=== PATIENT | female | born 1985 | race Caucasian/White ===

== ENCOUNTER 2017-03-30 15:50 | Emergency (ER) | payer MEDICARE ==
[2017-03-30 15:56] VITALS: BP 118/86
--- NOTE | 2017-03-30 16:26 | ER Document Report ---
HPI - HPI Pain Level: 4 Notes: Patient is a 32-year-old female IV drug abuser who presents the ED for a wound recheck of the cellulitis to her left anterior distal forearm after evaluation 4 days ago. At that time patient did not have an abscess for incision and drainage and was sent home on Bactrim and Keflex. Patient states that the redness is overall improved, but more of an abscess formation has developed to the anterior distal wrist that has become more painful than it was before. Patient has not noticed any drainage or red streaks. She still eating and drinking without any difficulties. No other concerns or complaints at this time. She continues to take her antibiotics as directed. Denies any headache, fever, URI, sore throat, chest pain, palpitations, syncope, cough, shortness of breath, wheeze, dyspnea, abdominal pain, nausea/vomiting/diarrhea, dysuria, hematuria, numbness/tingling, muscle paralysis/weakness, or rash. - ROS Notes: REVIEW OF SYSTEMS: CONSTITUTIONAL : Denies fever, chills, or sweats. Denies recent illness. EENT: Denies eye, ear, throat, or mouth pain or symptoms. Denies nasal or sinus congestion or discharge. Denies throat, tongue, or mouth swelling or difficulty swallowing. CARDIOVASCULAR: Denies chest pain. Denies palpitations or racing or irregular heart beat. Denies ankle edema. RESPIRATORY: Denies cough, cold, or chest congestion. Denies shortness of breath, difficulty breathing, or wheezing. GASTROINTESTINAL: Denies abdominal pain or distention. Denies nausea, vomiting , or diarrhea. Denies blood in vomitus, stools, or per rectum. Denies black, tarry stools. Denies constipation. GENITOURINARY: Denies difficulty urinating, painful urination, burning, frequency, blood in urine, or discharge. MUSCULOSKELETAL: Denies back or neck pain or stiffness. Denies joint pain or swelling. SKIN: see hpi NEUROLOGICAL: Denies confusion or altered mental status. Denies passing out or loss of consciousness. Denies dizziness or lightheadedness. Denies headache. Denies weakness or paralysis or loss of use of either side. Denies problems with gait or speech. Denies sensory loss, numbness, or tingling. ALL OTHER SYSTEMS REVIEWED AND NEGATIVE. Dictation was performed using [employer] recognition software - CARDIOVASCULAR Cardiovascular: DENIES: Chest pain - DERM Skin Color: Normal Past Medical History - Social History Smoking Status: Current Every Day Smoker Chew tobacco use (# tins/day): No Frequency of alcohol use: None Drug Abuse: None Family History: Reviewed & Not Pertinent Patient has suicidal ideation: No Patient has homicidal ideation: No Pulmonary Medical History: Reports: Hx Asthma Renal/ Medical History: Reports: Hx Kidney Stones. Denies: Hx Peritoneal Dialysis Past Surgical History: Reports: Hx Kidney (Renal Surgery) - kidney stents/ lithotripsy - Immunizations Hx Diphtheria, Pertussis, Tetanus Vaccination: Yes Vertical Provider Document - CONSTITUTIONAL Agree With Documented VS: Yes Notes: PHYSICAL EXAMINATION: GENERAL: Well-appearing, well-nourished and in no acute distress. NECK: Normal range of motion, supple without lymphadenopathy LUNGS: Breath sounds clear to auscultation bilaterally and equal. No wheezes rales or rhonchi. HEART: Regular rate and rhythm without murmurs, rubs, gallops. Musculoskeletal: Left UE: FROM to passive/active. Strength 5+/5. Extremities: No cyanosis, clubbing, or edema b/l. Peripheral pulses 2+. Capillary refill less than 3 seconds. NEUROLOGICAL: Cranial nerves grossly intact. Normal speech, normal gait. Normal sensory, motor exams PSYCH: Normal mood, normal affect. SKIN: There is a 2cm diam. abscess to the anterior left distal forearm/wrist. + fluctuant material. + mild induration. Overall the erythema that was marked has greatly improved. - INFECTION CONTROL TRAVEL OUTSIDE OF THE [place] IN LAST 30 DAYS: No - RESPIRATORY O2 Sat by Pulse Oximetry: 98 Course - Re-evaluation Re-evalutation: 03/30/17 17:08 Patient is an afebrile, well-hydrated, 32-year-old female who presents the ED with an abscess to the left wrist are stable. PE is otherwise unremarkable. Patient is already currently taking Keflex and Bactrim for cellulitis in that area, but has recently developed into an abscess distally. Incision and drainage was performed successfully without any complications. Packing was placed and a wound culture was obtained. Wound instructions reviewed after wound dressing was placed. Conservative measures for symptoms otherwise. You will need a wound recheck in 2-3 days. Return to the ED with any worsening/ concerning symptoms otherwise as reviewed in discharge. Patient is in agreement. - Vital Signs Vital signs: Temp Pulse Resp BP Pulse Ox 98.8 F 92 12 118/86 H 98 03/30/17 15:53 03/30/17 15:53 03/30/17 15:53 03/30/17 15:53 03/30/17 15:53 Procedures - Incision and Drainage Left Wrist Time completed: 17:00 Type: Simple Anesthetic type: 1% Lidocaine mL's of anesthetic: 5 Blade size: 11 I&D procedure: Iodoform packing placed, Sterile dressing applied, Other - chlorhexadine Incision Method: Incision made by scalpel Amount/type of drainage: moderate purulent Discharge - Discharge Clinical Impression: Abscess Condition: Stable Disposition: HOME, SELF-CARE Instructions: Abscess ([facility]), Post Incision and Drainage Additional Instructions: Do not shower or bathe for 24 hours. After 24 hours she may shower but no submersion of the wound under water. Keep the original dressing on the wound for 24 hours unless the drainage soaks through. Change the dressing daily thereafter and use a small amount of triple antibiotic ointment over the open wound. Return to the ED and/or your PCM in 2-3 days for recheck and continue direction for wound packing. Monitor for any signs of worsening pain or redness , streaks, and/or fever. Return to the ED if noticing any of the above symptoms or as needed. Take medications as directed. Forms: Elevated Blood Pressure Referrals: [facility] [Provider Group] - Follow up as needed [facility] [Provider Group] - Follow up as needed
[2017-03-30] MEDS ORDERED: OXYCODONE HCL IR 5 MG TABLET PO ONE (17:08)
== END 2017-03-30 17:19 | disposition home or self-care (01) ==
LOC: ER 15:50
DX: L02.414 Cutaneous abscess of left upper limb (principal); F17.200 Nicotine dependence, unspecified, uncomplicated; J45.909 Unspecified asthma, uncomplicated; L03.114 Cellulitis of left upper limb
CPT/HCPCS: 99283; 87070; 87205; 87075; 87077; 87186; 10060; A9270

== ENCOUNTER 2017-04-02 20:50 | Emergency (ER) | payer MEDICARE ==
[2017-04-02] MEDS ORDERED: HYDROCODONE/ACETAMINOPHEN 5-325 MG 6 TAB/DSPK PO PRN (23:24)
--- NOTE | 2017-04-02 23:26 | ER Document Report ---
ED Wound - General Chief Complaint: Wound Recheck Stated Complaint: WOUND CHECK Time Seen by Provider: 04/02/17 21:56 Notes: Patient is a 32-year-old female presents emergency department for a wound check. Patient was seen here for a left wrist abscess on the flexor surface 3 days ago for an I&D after previously being evaluated diagnosis cellulitis on 03/26. Denies fevers, chills, drainage worsening redness. States it is sore to move but denies deep wrist pain, limited ROM TRAVEL OUTSIDE OF THE [place] IN LAST 30 DAYS: No - Related Data Allergies/Adverse Reactions: ketorolac [From Toradol] Allergy (Verified 03/30/17 15:53) sumatriptan [From Imitrex] Allergy (Verified 03/30/17 15:53) Past Medical History - Social History Smoking Status: Unknown if Ever Smoked Chew tobacco use (# tins/day): No Frequency of alcohol use: None Drug Abuse: None Family History: Reviewed & Not Pertinent Patient has suicidal ideation: No Patient has homicidal ideation: No Pulmonary Medical History: Reports: Hx Asthma Renal/ Medical History: Reports: Hx Kidney Stones. Denies: Hx Peritoneal Dialysis Past Surgical History: Reports: Hx Kidney (Renal Surgery) - kidney stents/ lithotripsy - Immunizations Hx Diphtheria, Pertussis, Tetanus Vaccination: Yes Review of Systems - Review of Systems Constitutional: No symptoms reported Musculoskeletal: See HPI Skin: See HPI -: Yes All other systems reviewed and negative Physical Exam - Vital signs Vitals: Temp Pulse Resp BP Pulse Ox 98.4 F 95 16 125/81 98 04/02/17 21:03 04/02/17 21:03 04/02/17 21:03 04/02/17 21:03 04/02/17 21:03 - General General appearance: Appears well, Alert In distress: None - Cardiovascular Pulses: Normal: Radial Normal capillary refill: Yes - Extremities General upper extremity: Normal inspection, Nontender, Normal color, Normal ROM , Normal strength, Normal temperature - Skin Skin Temperature: Warm Skin Moisture: Dry Skin Color: Normal Skin Turgor: Elastic Skin irregularity: Abscess - previous I&D incision over left flexor surface of the wrist approx. 1.5 cm in length with minimal erythema, no induration or drainage Course - Re-evaluation Re-evalutation: 11/14/17 23:24 Patient is a 32-year-old female is hemodynamically stable, no acute distress afebrile. Wound is healing well with improvement in the redness and induration with no active drainage. Patient educated to continue dressing changes as she has been in to follow-up again in 3 to days for repeat wound check if she can get established with primary care. Patient agrees with plan and stable for discharge home. - Vital Signs Vital signs: Temp Pulse Resp BP Pulse Ox 97.8 F 83 18 116/83 98 04/02/17 23:53 04/02/17 23:53 04/02/17 23:53 04/02/17 23:53 04/02/17 23:53 Discharge - Discharge Clinical Impression: Abscess Condition: Good Disposition: HOME, SELF-CARE Instructions: MRSA Cellulitis ([facility]), Post Incision and Drainage Additional Instructions: Please see primary care or return to ED for wound check in 3 days Prescriptions: Tramadol HCl [Ultram] 50 mg PO BID #10 tablet Referrals: DARRYL SANTIZO MD [ACTIVE STAFF] - Follow up in 3-5 days
[2017-04-02] MEDS ORDERED: HYDROCODONE/ACETAMINOPHEN 5-325 MG TABLET PO ONE (23:37)
[2017-04-02 23:53] VITALS: BP 116/83
== END 2017-04-02 23:53 | disposition home or self-care (01) ==
LOC: ER 20:50
DX: L02.414 Cutaneous abscess of left upper limb (principal)
CPT/HCPCS: 99282; A9270

== ENCOUNTER 2017-06-24 23:05 | Inpatient (IN) | payer MEDICARE ==
[2017-06-24 23:47] LABS: ABSOLUTE LYMPHOCYTES (AUTO) 1.7 10^3/uL (0.5-4.7); ABSOLUTE MONOCYTES (AUTO) 0.5 10^3/uL (0.1-1.4); ABSOLUTE NEUT (AUTO) 4.8 10^3/uL (1.7-8.2); BASOPHILS % (AUTO) 0.5 % (0-2); EOSINOPHILS % (AUTO) 0.2 % (0-6); HEMATOCRIT 32.1 % (36.0-47.0); HEMOGLOBIN 11.2 g/dL (12.0-15.5); LYMPHOCYTES % (AUTO) 24.6 % (13-45); MEAN CORPUSCULAR HEMOGLOBIN 32.8 pg (27.0-33.4); MEAN CORPUSCULAR VOLUME 94 fl (80-97); MONOCYTES % (AUTO) 6.5 % (3-13); PLATELET COUNT 298 10^3/uL (150-450); RED BLOOD COUNT 3.43 10^6/uL (3.72-5.28); RED CELL DISTRIBUTION WIDTH 15.6 % (11.5-14.0); SEGMENTED NEUTROPHILS % (AUTO) 68.2 % (42-78); TOTAL CELLS COUNTED % (AUTO) 100 %; WHITE BLOOD COUNT 7.1 10^3/uL (4.0-10.5)
[2017-06-25] MEDS ORDERED: NALOXONE HCL INJ 2 MG/2 ML DISP.SYRIN IV ONE (00:03)
--- NOTE | 2017-06-25 00:04 | ER Document Report ---
ED General - General Chief Complaint: Possible Overdose Stated Complaint: ALTERED MENTAL STATUS Time Seen by Provider: 06/24/17 23:30 Mode of Arrival: Medic Information source: Relative, Legal Guardian Cannot obtain history due to: Uncooperative, Altered mental status Notes: 32-year-old female who had a previous overdose on gabapentin 2 weeks ago requiring intubation presents unresponsive by family member. They note that the patient was given gabapentin again and had plenty in the bottle yesterday, she was acting appropriately wanted to be left alone they left her alone for 2 hours and when they went to check on her patient was unresponsive TRAVEL OUTSIDE OF THE [place] IN LAST 30 DAYS: No - HPI Onset: Just prior to arrival Onset/Duration: Sudden Quality of pain: No pain Severity: Severe Pain Level: Denies Associated symptoms: Other Exacerbated by: Denies Relieved by: Denies Similar symptoms previously: Yes Recently seen / treated by doctor: Yes - Related Data Allergies/Adverse Reactions: ketorolac [From Toradol] Allergy (Verified 03/30/17 15:53) sumatriptan [From Imitrex] Allergy (Verified 03/30/17 15:53) Past Medical History - Social History Smoking Status: Never Smoker Cigarette use (# per day): No Chew tobacco use (# tins/day): No Smoking Education Provided: No Family History: Reviewed & Not Pertinent Pulmonary Medical History: Reports: Hx Asthma Renal/ Medical History: Reports: Hx Kidney Stones. Denies: Hx Peritoneal Dialysis Past Surgical History: Reports: Hx Kidney (Renal Surgery) - kidney stents/ lithotripsy - Immunizations Hx Diphtheria, Pertussis, Tetanus Vaccination: Yes Review of Systems - Review of Systems Notes: PHYSICAL EXAMINATION: GENERAL: Patient is obtunded HEAD: Atraumatic, normocephalic. EYES: Pupils equal round and reactive to light, extraocular movements intact, conjunctiva are normal. ENT: Trumpet placed nares patent, oropharynx clear without exudates. Moist mucous membranes. NECK: Normal range of motion, supple without lymphadenopathy LUNGS: Breath sounds clear to auscultation bilaterally and equal. No wheezes rales or rhonchi. HEART: Regular rate and rhythm without murmurs ABDOMEN: Soft, nontender, nondistended abdomen. No guarding, no rebound. No masses appreciated. Female : deferred Musculoskeletal: Intermittently moves extremities NEUROLOGICAL: Unresponsive SKIN: Warm, Dry, normal turgor, no rashes or lesions noted. -: Yes ROS unobtainable due to patient's medical condition Physical Exam - Vital signs Vitals: Resp BP Pulse Ox 11 L 112/83 96 06/25/17 00:25 06/25/17 00:25 06/25/17 00:25 Course - Re-evaluation Re-evalutation: 06/25/17 00:03 Patient presents obtunded with normal vital signs, however due to my concerns of not protecting her airway we will try Narcan initially if this does not work the patient will be intubated for airway protection 06/25/17 00:28 No response ot narcan or painful stimuli, will plan for intubation 06/25/17 02:46 Patient intubated aspirated food noted, pt admitted to icu - Vital Signs Vital signs: Temp Pulse Resp BP Pulse Ox 10 L 117/75 99 06/25/17 02:00 06/25/17 02:00 06/25/17 02:01 - Laboratory Result Diagrams: 06/24/17 23:35 06/24/17 23:35 Laboratory results interpreted by me: 06/24/17 06/24/17 06/25/17 23:35 23:35 00:00 RBC 3.43 L Hgb 11.2 L Hct 32.1 L RDW 15.6 H Glucose 159 H Urine Ketones TRACE H Salicylates < 1.0 L Acetaminophen < 10 L Procedures - Intubation Orotracheal Time of Intubation: 01:00 Airway evaluation: Normal anatomy, Copious secretions, Loose teeth Mallampati Classification: Class 2 Medications: Etomidate, Succinylcholine Intubation method: Orotracheal Blade type: Arielle Blade size: 4 ETT size: 7.5 ETT secured at: Teeth ETT secured at (cm): 22 Breath Sounds after Intubation: Equal End tidal CO2 confirmed: Yes Intubation Complications: Apparent aspiration - pt had lots of food in airway after intubation from previous aspiraiton Discharge - Discharge Clinical Impression: Self-harming behavior Drug overdose Qualifiers: Encounter type: initial encounter Injury intent: intentional self-harm Qualified Code(s): T50.902A - Poisoning by unspecified drugs, medicaments and biological substances, intentional self-harm, initial encounter Aspiration into airway Qualifiers: Encounter type: initial encounter Qualified Code(s): T17.908A - Unspecified foreign body in respiratory tract, part unspecified causing other injury, initial encounter Condition: Fair Disposition: ADMITTED INPATIENT Admitting Provider: Hospitalist Unit Admitted: ICU
[2017-06-25 00:05] LABS: ALANINE AMINOTRANSFERASE 36 U/L (9-52); ALBUMIN 3.8 g/dL (3.5-5.0); ALKALINE PHOSPHATASE 65 U/L (38-126); ANION GAP 10 (5-19); ASPARTATE AMINO TRANSFERASE 28 U/L (14-36); BILIRUBIN,DIRECT 0.1 mg/dL (0.0-0.4); BILIRUBIN,TOTAL 0.2 mg/dL (0.2-1.3); BLOOD UREA NITROGEN 7 mg/dL (7-20); CALCIUM 9.4 mg/dL (8.4-10.2); CARBON DIOXIDE 24 mmol/L (22-30); CHLORIDE 106 mmol/L (98-107); GLUCOSE 159 mg/dL (75-110); POTASSIUM 3.7 mmol/L (3.6-5.0); SODIUM 140.4 mmol/L (137-145)
[2017-06-25 00:08] LABS: ACETAMINOPHEN < 10 ug/mL (10-30); ALCOHOL < 10 mg/dL (NONE DETECTED); SALICYLATE < 1.0 mg/dL (2.0-20.0)
[2017-06-25 00:12] LABS: APPEARANCE,URINE CLEAR; BILIRUBIN,URINE NEGATIVE (NEGATIVE); COLOR,URINE YELLOW; GLUCOSE, URINE NEGATIVE (NEGATIVE); KETONES,URINE TRACE mg/dL (NEGATIVE); LEUKOCYTE ESTERASE,URINE NEGATIVE (NEGATIVE); NITRITE,URINE NEGATIVE (NEGATIVE); PROTEIN,URINE NEGATIVE (NEGATIVE); URINE SPECIFIC GRAVITY 1.008; UROBILINOGEN,URINE NEGATIVE mg/dL (<2.0)
[2017-06-25 00:26] LABS: URINE AMPHETAMINES SCREEN NEGATIVE; URINE BARBITURATES SCREEN NEGATIVE; URINE BENZODIAZEPINES SCREEN NEGATIVE; URINE COCAINE SCREEN UNCONFIRMED POSITIVE; URINE MARIJUANA (THC) SCREEN UNCONFIRMED POSITIVE; URINE METHADONE SCREEN NEGATIVE; URINE PHENCYCLIDINE SCREEN NEGATIVE
[2017-06-25] MEDS ORDERED: ETOMIDATE INJ/PF 20 MG/10 ML SDV IV ONE ×2 (00:29→02:25)
[2017-06-25] MEDS ORDERED: SUCCINYLCHOLINE CHLORIDE INJ 200 MG/10 ML VIAL IV ONE (00:29)
[2017-06-25] MEDS ORDERED: EPTIFIBATIDE 0 MG/0 ML INFUS..BTL IV ONE (00:43)
[2017-06-25] MEDS ORDERED: PROPOFOL 100 ML IV ONE (01:04)
[2017-06-25] MEDS ORDERED: PROPOFOL 100 ML IV PRN (01:05)
[2017-06-25] MEDS ORDERED: AMPICILLIN SOD/SULBACTAM 3 GM VIAL IV ONE (01:10)
[2017-06-25] MEDS ORDERED: MAG HYDROX/AL HYDROX/SIMETH SUSP 30 ML UDCUP PO PRN (01:15)
[2017-06-25] MEDS ORDERED: FENTANYL CITRATE INJ/PF 100 MCG/2 ML AMPUL IV PRN (01:15)
[2017-06-25] MEDS ORDERED: IPRATROPIUM/ALBUTEROL 0.5-2.5 MG/3 ML AMPUL NEB PRN (01:15)
[2017-06-25] MEDS ORDERED: ONDANSETRON HCL INJ/PF 4 MG/2 ML SDV IV PRN (01:15)
[2017-06-25] MEDS ORDERED: MIDAZOLAM 2 MG/2 ML INJ IV ONE (01:41)
[2017-06-25] MEDS: NORMAL SALINE 1000 ML 1,000 ML IV PRN ×3 (01:49→13:24)
--- NOTE | 2017-06-25 01:54 | RADIOLOGY REPORT (SQ) ---
EXAM DESCRIPTION: CHEST SINGLE VIEW CLINICAL HISTORY: post intubation COMPARISON: None. FINDINGS: Single frontal view of the chest. Endotracheal tube 2 cm above the patience. NG tube with tip below the diaphragm. Leads overlie the chest. Heart is not enlarged. No consolidation, pneumothorax, or pleural effusion. No displaced rib fractures identified. Upper abdominal soft tissues are unremarkable. IMPRESSION: 1. No acute pulmonary process identified. Endotracheal tube in appropriate position.
[2017-06-25] MEDS: IPRATROPIUM/ALBUTEROL 0.5-2.5 MG/3 ML AMPUL NEB SCH ×4 (02:42→21:11)
[2017-06-25 03:12] LABS: ARTERIAL BLOOD BASE EXCESS -1.9 mmol/L; ARTERIAL BLOOD H2CO3 1.07 mmol/L (1.05-1.35); ARTERIAL BLOOD HCO3 22.2 mmol/L (20-26); ARTERIAL BLOOD O2 SATURATION 99.5 % (94-98); ARTERIAL BLOOD PCO2 35.6 mmHg (35-45); ARTERIAL BLOOD PH 7.41 (7.35-7.45); ARTERIAL BLOOD PO2 232.2 mmHg (80-100); ARTERIAL BLOOD TOTAL CO2 23.3 mmol/L (21-25)
[2017-06-25 03:13] LABS: ARTERIAL BLOOD FIO2 60%
[2017-06-25] MEDS: PROPOFOL 100 ML IV PRN ×7 (03:38→19:25)
[2017-06-25] MEDS ORDERED: FENTANYL CITRATE INJ/PF 100 MCG/2 ML AMPUL ONE (05:08)
[2017-06-25] MEDS: FENTANYL CITRATE INJ/PF 100 MCG/2 ML AMPUL IV PRN ×2 (05:09→22:10)
[2017-06-25 05:39] LABS: ABSOLUTE BASOPHILS # (AUTO) 0.1 10^3/uL (0.0-0.2); ABSOLUTE EOSINOPHILS # (AUTO) 0.1 10^3/uL (0.0-0.6); ABSOLUTE LYMPHOCYTES (AUTO) 1.9 10^3/uL (0.5-4.7); ABSOLUTE MONOCYTES (AUTO) 0.7 10^3/uL (0.1-1.4); ABSOLUTE NEUT (AUTO) 5.5 10^3/uL (1.7-8.2); BASOPHILS % (AUTO) 0.9 % (0-2); EOSINOPHILS % (AUTO) 0.7 % (0-6); HEMATOCRIT 32.1 % (36.0-47.0); HEMOGLOBIN 11.2 g/dL (12.0-15.5); LYMPHOCYTES % (AUTO) 23.5 % (13-45); MEAN CORPUSCULAR HEMOGLOBIN 32.8 pg (27.0-33.4); MEAN CORPUSCULAR VOLUME 94 fl (80-97); MONOCYTES % (AUTO) 8.3 % (3-13); PLATELET COUNT 293 10^3/uL (150-450); RED BLOOD COUNT 3.43 10^6/uL (3.72-5.28); RED CELL DISTRIBUTION WIDTH 15.3 % (11.5-14.0); SEGMENTED NEUTROPHILS % (AUTO) 66.6 % (42-78); TOTAL CELLS COUNTED % (AUTO) 100 %; WHITE BLOOD COUNT 8.3 10^3/uL (4.0-10.5)
[2017-06-25] MEDS ORDERED: LORAZEPAM INJ 2 MG/1 ML VIAL IV ONE (05:43)
[2017-06-25] MEDS: HEPARIN SOD (PORCINE) 5,000 UNIT/ML 1 ML SYRINGE SUBCUT SCH ×3 (05:47→22:09)
[2017-06-25 06:10] LABS: ALANINE AMINOTRANSFERASE 38 U/L (9-52); ALBUMIN 3.3 g/dL (3.5-5.0); ALKALINE PHOSPHATASE 61 U/L (38-126); ANION GAP 6 (5-19); ASPARTATE AMINO TRANSFERASE 30 U/L (14-36); BILIRUBIN,DIRECT 0.4 mg/dL (0.0-0.4); BILIRUBIN,TOTAL 0.4 mg/dL (0.2-1.3); BLOOD UREA NITROGEN 5 mg/dL (7-20); CARBON DIOXIDE 25 mmol/L (22-30); CHLORIDE 114 mmol/L (98-107); GLUCOSE 106 mg/dL (75-110); POTASSIUM 3.4 mmol/L (3.6-5.0); TOTAL PROTEIN 6.2 g/dL (6.3-8.2)
--- NOTE | 2017-06-25 06:26 | PDOC H&P ---
History of Present Illness Admission Date/PCP: 06/25/17 01:19 Patient complains of: Altered mental status History of Present Illness: HILARIO LUNA is a 32 year old female with a past medical history of decompensated bipolar depression, suicide attempt by medication. Patient found by landlord unresponsive with empty prescription bottle of gabapentin and suspected to have taken trazodone. The patient herself was admitted to inpatient psychiatric care June 10. The patient's other roommate was hospitalized requiring intubation 2 hours prior. In the emergency room she is suspected to have aspirated, unable to protect her airway she is intubated and referred to the hospitalist for admission. Initial workup is notable superficial left wrist lacerations and labs positive cocaine and marijuana. Past Medical History Pulmonary Medical History: Reports: Bronchitis, Chronic Obstructive Pulmonary Disease (COPD) Psychiatric Medical History: Reports: Bipolar Disorder, Substance Abuse, Tobacco Dependency Social History Information Source: Friend, [facility] Records Lives with: Other - Roommates Smoking Status: Never Smoker Hx Recreational Drug Use: Yes Drugs: Cocaine, Marijuana Hx Prescription Drug Abuse: Yes - Advance Directive Resuscitation Status: Full Code Family History Family History: Other - Unobtainable unobtainable Parental Family History Reviewed: Yes Children Family History Reviewed: Yes Sibling(s) Family History Reviewed.: Yes Medication/Allergy Home Medications: Acetaminophen with Codeine [Acetaminophen-Cod #3 Tablet] 1 each PO TIDP PRN #15 tablet 03/26/17 Cephalexin Monohydrate [Keflex 500 mg Capsule] 500 mg PO QID #20 capsule Sulfamethoxazole/Trimethoprim [Bactrim Ds Tablet] 2 each PO BID #28 tablet 03/26 Tramadol HCl [Ultram] 50 mg PO BID #10 tablet 04/02/17 Allergies/Adverse Reactions: ketorolac [From Toradol] Allergy (Verified 06/25/17 03:17) sumatriptan [From Imitrex] Allergy (Verified 06/25/17 03:17) Review of Systems ROS unobtainable: Due to mental status Physical Exam Vital Signs: Temp Pulse Resp BP Pulse Ox 99.0 F 104 H 20 122/80 98 06/25/17 05:46 06/25/17 02:45 06/25/17 05:45 06/25/17 05:46 06/25/17 05:46 Intake & Output 06/23/17 06/24/1718 11:59 11:59 11:59 Output Total 500 Balance -500 General appearance: PRESENT: no acute distress, well-developed, well-nourished, other - Sedated on ventilator. ABSENT: disheveled Head exam: PRESENT: atraumatic, normocephalic Eye exam: PRESENT: conjunctiva pink, EOMI, PERRLA. ABSENT: scleral icterus Ear exam: PRESENT: normal external ear exam Mouth exam: PRESENT: moist, tongue midline Neck exam: ABSENT: carotid bruit, JVD, lymphadenopathy, thyromegaly Respiratory exam: PRESENT: clear to auscultation john. ABSENT: rales, rhonchi, wheezes Cardiovascular exam: PRESENT: RRR. ABSENT: diastolic murmur, rubs, systolic murmur Pulses: PRESENT: normal dorsalis pedis pul Vascular exam: PRESENT: normal capillary refill GI/Abdominal exam: PRESENT: normal bowel sounds, soft. ABSENT: distended, guarding, mass, organolmegaly, rebound, tenderness Rectal exam: PRESENT: deferred Extremities exam: PRESENT: full ROM. ABSENT: calf tenderness, clubbing, pedal edema Neurological exam: PRESENT: alert, awake, oriented to person, oriented to place , oriented to time, oriented to situation, CN II-XII grossly intact. ABSENT: motor sensory deficit Psychiatric exam: PRESENT: appropriate affect, normal mood. ABSENT: homicidal ideation, suicidal ideation Skin exam: PRESENT: dry, intact, warm. ABSENT: cyanosis, rash Results Laboratory Results: 06/25/17 05:30 06/25/17 06/25/17 03:09 05:30 WBC 8.3 RBC 3.43 L Hgb 11.2 L Hct 32.1 L MCV 94 MCH 32.8 MCHC 35.0 RDW 15.3 H Plt Count 293 Seg Neutrophils % 66.6 Lymphocytes % 23.5 Monocytes % 8.3 Eosinophils % 0.7 Basophils % 0.9 Absolute Neutrophils 5.5 Absolute Lymphocytes 1.9 Absolute Monocytes 0.7 Absolute Eosinophils 0.1 Absolute Basophils 0.1 Carbonic Acid 1.07 HCO3/H2CO3 Ratio 20:1 ABG pH 7.41 ABG pCO2 35.6 ABG pO2 232.2 H ABG HCO3 22.2 ABG O2 Saturation 99.5 H ABG Base Excess -1.9 FiO2 60% Impressions: Chest X-Ray 06/25/17 01:11 IMPRESSION: 1. No acute pulmonary process identified. Endotracheal tube in appropriate position. Assessment & Plan - Diagnosis (1) Drug overdose Qualifiers: Encounter type: initial encounter Injury intent: intentional self-harm Qualified Code(s): T50.902A - Poisoning by unspecified drugs, medicaments and biological substances, intentional self-harm, initial encounter Is this a current diagnosis for this admission?: Yes Plan: ICU admission supportive care reevaluate EKG, chemistry and toxicology. (2) Polysubstance abuse Is this a current diagnosis for this admission?: Yes Plan: Supportive care. Benzodiazepine for cocaine withdrawal. (3) Aspiration into airway Qualifiers: Encounter type: initial encounter Qualified Code(s): T17.908A - Unspecified foreign body in respiratory tract, part unspecified causing other injury, initial encounter Is this a current diagnosis for this admission?: Yes Plan: IV clindamycin. Albuterol and Atrovent. Ventilator support. (4) Self-harming behavior Is this a current diagnosis for this admission?: Yes Plan: IVC paper complete, mental health consult - Time Time Spent: 50 to 70 Minutes - Inpatient Certification Medical Necessity: Need Close Monitoring Due to Risk of Patient Decompensation
[2017-06-25] MEDS ORDERED: NORMAL SALINE 1000 ML 2,000 ML IV ONE (06:29)
[2017-06-25] MEDS ORDERED: ACETAMINOPHEN 325 MG TABLET NG PRN (06:33)
[2017-06-25] MEDS ORDERED: HYDROMORPHONE HCL INJ/PF 2 MG/ML AMPULE ONE (06:39)
[2017-06-25] MEDS: HYDROMORPHONE HCL INJ/PF 2 MG/ML AMPULE IV PRN (06:41)
[2017-06-25] MEDS ORDERED: CLINDAMYCIN 600 MG/D5W RTU 600 MG/50 ML RTUPB IV ONE (06:45)
--- NOTE | 2017-06-25 07:17 | RADIOLOGY REPORT (SQ) ---
EXAM DESCRIPTION: CHEST SINGLE VIEW CLINICAL HISTORY: intubated COMPARISON: 06/25/2017 FINDINGS: Single frontal view of the chest. Endotracheal tube with tip just above the patience. NG tube with tip below the diaphragm. Heart is not enlarged. No consolidation, pneumothorax, or pleural effusion. No displaced rib fractures identified. Upper abdominal soft tissues are unremarkable. IMPRESSION: 1. Stable appearance of the chest.
[2017-06-25] MEDS ORDERED: POTASSIUM CHLORIDE 10 MEQ TABLET.SA PO ONE (07:34)
[2017-06-25] MEDS ORDERED: POTASSIUM CHLORIDE 20 MEQ/15 ML UDCUP PO ONE (08:17)
--- NOTE | 2017-06-25 08:35 | EKG REPORT ---
SEVERITY:- ABNORMAL ECG - SINUS TACHYCARDIA PROBABLE LEFT ATRIAL ABNORMALITY INFERIOR Q WAVES, PROBABLY NORMAL VARIATION BORDERLINE PROLONGED QT INTERVAL : Confirmed by: Catarina Powell 25-Jun-2017 08:33:51
[2017-06-25 08:57] LABS: ARTERIAL BLOOD BASE EXCESS -4.4 mmol/L; ARTERIAL BLOOD FIO2 30%; ARTERIAL BLOOD H2CO3 1.14 mmol/L (1.05-1.35); ARTERIAL BLOOD HCO3 20.7 mmol/L (20-26); ARTERIAL BLOOD O2 SATURATION 97.4 % (94-98); ARTERIAL BLOOD PCO2 37.8 mmHg (35-45); ARTERIAL BLOOD PH 7.36 (7.35-7.45); ARTERIAL BLOOD PO2 101.3 mmHg (80-100); ARTERIAL BLOOD TOTAL CO2 21.8 mmol/L (21-25)
--- NOTE | 2017-06-25 11:51 | PDOC PROGRESS REPORT ---
Subjective Progress Note for:: 06/25/17 Subjective:: Unable to obtain since intubated and sedated Review of systems Unable to obtain since intubated and sedated All significant laboratories and diagnostics have been reviewed Reason For Visit: OVERDOSE Physical Exam Vital Signs: Temp Pulse Resp BP Pulse Ox 99.5 F 104 H 14 92/48 L 98 06/25/17 07:20 06/25/17 02:45 06/25/17 07:20 06/25/17 07:16 06/25/17 07:20 Intake & Output 06/24/17 06/25/17 06/26/17 06:59 06:59 06:59 Output Total 575 Balance -575 General appearance: PRESENT: other - sedated Head exam: PRESENT: atraumatic, normocephalic Eye exam: PRESENT: EOMI, PERRLA Ear exam: PRESENT: normal external ear exam Mouth exam: PRESENT: moist Respiratory exam: PRESENT: clear to auscultation john Vascular exam: PRESENT: normal capillary refill GI/Abdominal exam: PRESENT: normal bowel sounds, soft Extremities exam: ABSENT: clubbing, joint swelling, pedal edema Neurological exam: PRESENT: other - Sedated Results Laboratory Results: 06/25/17 05:30 06/25/17 05:30 06/25/17 06/25/17 06/25/17 03:09 05:30 05:30 WBC 8.3 RBC 3.43 L Hgb 11.2 L Hct 32.1 L MCV 94 MCH 32.8 MCHC 35.0 RDW 15.3 H Plt Count 293 Seg Neutrophils % 66.6 Lymphocytes % 23.5 Monocytes % 8.3 Eosinophils % 0.7 Basophils % 0.9 Absolute Neutrophils 5.5 Absolute Lymphocytes 1.9 Absolute Monocytes 0.7 Absolute Eosinophils 0.1 Absolute Basophils 0.1 Carbonic Acid 1.07 HCO3/H2CO3 Ratio 20:1 ABG pH 7.41 ABG pCO2 35.6 ABG pO2 232.2 H ABG HCO3 22.2 ABG O2 Saturation 99.5 H ABG Base Excess -1.9 FiO2 60% Sodium 145.0 Potassium 3.4 L Chloride 114 H Carbon Dioxide 25 Anion Gap 6 BUN 5 L Creatinine 0.58 Est GFR ( Amer) > 60 Est GFR (Non-Af Amer) > 60 Glucose 106 Calcium 9.0 Total Bilirubin 0.4 AST 30 ALT 38 Alkaline Phosphatase 61 Total Protein 6.2 L Albumin 3.3 L Impressions: Chest X-Ray 06/25/17 06:00 IMPRESSION: 1. Stable appearance of the chest. Assessment & Plan - Diagnosis (1) Drug overdose Qualifiers: Encounter type: initial encounter Injury intent: intentional self-harm Qualified Code(s): T50.902A - Poisoning by unspecified drugs, medicaments and biological substances, intentional self-harm, initial encounter Is this a current diagnosis for this admission?: Yes Plan: Accordingly overdose on Neurontin and trazodone and [place] Coma Scale less than 8 and was intubated. Consult Dr. Nunez for ventilator management (2) Polysubstance abuse Is this a current diagnosis for this admission?: Yes Plan: To be consult when extubated (3) Hypokalemia Plan: Replace thru IV and oral. Trend - Time Time Spent with patient: 15-24 minutes Medications reviewed and adjusted accordingly: Yes Anticipated discharge: Other Within: within 72 hours - Inpatient Certification Based on my medical assessment, after consideration of the patient's comorbidities, presenting symptoms, or acuity I expect that the services needed warrant INPATIENT care.: Yes I certify that my determination is in accordance with my understanding of Medicare's requirements for reasonable and necessary INPATIENT services [42 CFR 412.3e].: Yes Medical Necessity: Need For IV Fluids, Need For Continuous Telemetry Monitoring - ventilatory support
[2017-06-25] MEDS ORDERED: OLANZAPINE 2.5 MG TABLET PO SCH (12:00)
[2017-06-25] MEDS ORDERED: SUCCINYLCHOLINE CHLORIDE INJ 200 MG/10 ML VIAL ONE (12:11)
[2017-06-25] MEDS: CLINDAMYCIN 600 MG/D5W RTU 600 MG/50 ML RTUPB IV SCH ×2 (13:24→22:08)
[2017-06-25] MEDS: MIDAZOLAM HCL 50 MG/100 ML RTUINJ IV PRN ×2 (16:52→22:15)
[2017-06-25] MEDS: POTASSI CL 20 MEQ/D5-1/2NS 1L 1,000 ML IV PRN (22:09)
[2017-06-26] MEDS ORDERED: INFLUENZA ADLT QUAD (36MOS+) 2017-18 VAC 0.5 ML SYR IM PRN (00:28)
[2017-06-26] MEDS: PROPOFOL 100 ML IV PRN ×2 (00:36→03:57)
[2017-06-26] MEDS: IPRATROPIUM/ALBUTEROL 0.5-2.5 MG/3 ML AMPUL NEB SCH ×4 (01:44→20:27)
[2017-06-26] MEDS: HYDROMORPHONE HCL INJ/PF 2 MG/ML AMPULE IV PRN (02:09)
[2017-06-26] MEDS: MIDAZOLAM HCL 50 MG/100 ML RTUINJ IV PRN (03:57)
[2017-06-26 04:18] LABS: ABSOLUTE EOSINOPHILS # (AUTO) 0.1 10^3/uL (0.0-0.6); ABSOLUTE LYMPHOCYTES (AUTO) 1.8 10^3/uL (0.5-4.7); ABSOLUTE MONOCYTES (AUTO) 0.9 10^3/uL (0.1-1.4); ABSOLUTE NEUT (AUTO) 5.4 10^3/uL (1.7-8.2); BASOPHILS % (AUTO) 0.4 % (0-2); EOSINOPHILS % (AUTO) 0.9 % (0-6); HEMATOCRIT 28.7 % (36.0-47.0); HEMOGLOBIN 9.7 g/dL (12.0-15.5); LYMPHOCYTES % (AUTO) 22.1 % (13-45); MEAN CORPUSCULAR HEMOGLOBIN 32.1 pg (27.0-33.4); MEAN CORPUSCULAR HGB CONC 33.9 g/dL (32.0-36.0); MEAN CORPUSCULAR VOLUME 95 fl (80-97); MONOCYTES % (AUTO) 10.5 % (3-13); PLATELET COUNT 248 10^3/uL (150-450); RED BLOOD COUNT 3.03 10^6/uL (3.72-5.28); SEGMENTED NEUTROPHILS % (AUTO) 66.1 % (42-78); TOTAL CELLS COUNTED % (AUTO) 100 %; WHITE BLOOD COUNT 8.1 10^3/uL (4.0-10.5)
[2017-06-26 04:33] LABS: ALANINE AMINOTRANSFERASE 32 U/L (9-52); ALBUMIN 2.7 g/dL (3.5-5.0); ALKALINE PHOSPHATASE 57 U/L (38-126); ANION GAP 5 (5-19); ASPARTATE AMINO TRANSFERASE 24 U/L (14-36); BILIRUBIN,DIRECT 0.1 mg/dL (0.0-0.4); BILIRUBIN,TOTAL 0.2 mg/dL (0.2-1.3); BLOOD UREA NITROGEN 4 mg/dL (7-20); CARBON DIOXIDE 24 mmol/L (22-30); CHLORIDE 115 mmol/L (98-107); GLUCOSE 100 mg/dL (75-110); MAGNESIUM 1.7 mg/dL (1.6-2.3); POTASSIUM 3.8 mmol/L (3.6-5.0); SODIUM 144.2 mmol/L (137-145); TOTAL PROTEIN 5.2 g/dL (6.3-8.2)
[2017-06-26] MEDS: HEPARIN SOD (PORCINE) 5,000 UNIT/ML 1 ML SYRINGE SUBCUT SCH ×3 (05:02→21:22)
[2017-06-26] MEDS: CLINDAMYCIN 600 MG/D5W RTU 600 MG/50 ML RTUPB IV SCH (05:03)
[2017-06-26 05:44] LABS: ARTERIAL BLOOD BASE EXCESS -1.5 mmol/L; ARTERIAL BLOOD H2CO3 1.24 mmol/L (1.05-1.35); ARTERIAL BLOOD HCO3 23.6 mmol/L (20-26); ARTERIAL BLOOD O2 SATURATION 98.2 % (94-98); ARTERIAL BLOOD PCO2 41.1 mmHg (35-45); ARTERIAL BLOOD PH 7.38 (7.35-7.45); ARTERIAL BLOOD PO2 118.1 mmHg (80-100); ARTERIAL BLOOD TOTAL CO2 24.9 mmol/L (21-25)
[2017-06-26 05:47] LABS: ARTERIAL BLOOD FIO2 30%
--- NOTE | 2017-06-26 06:18 | RADIOLOGY REPORT (SQ) ---
EXAM DESCRIPTION: CHEST SINGLE VIEW CLINICAL HISTORY: resp failure COMPARISON: 06/25/2017 FINDINGS: Single frontal view of the chest. Endotracheal tube with tip just above the patience. NG tube with tip below the diaphragm. Heart is not enlarged. Increased left basilar opacity and possible small left pleural effusion. No pneumothorax. No displaced rib fractures identified. Upper abdominal soft tissues are unremarkable. IMPRESSION: 1. Interval increase in left basilar opacity with possible small left pleural effusion. Electronically signed by: Abisai Holt 06/26/2017 5:16 AM
[2017-06-26] MEDS ORDERED: PIPERACILLIN/TAZOBACTAM 3.375 GM VIAL IV ONE (08:28)
[2017-06-26] MEDS: POTASSI CL 20 MEQ/D5-1/2NS 1L 1,000 ML IV PRN ×2 (09:28→21:27)
[2017-06-26] MEDS ORDERED: OLANZAPINE 2.5 MG TABLET PO SCH (10:22)
[2017-06-26] MEDS ORDERED: DEXAMETHASONE SOD PHOSPHATE INJ 4 MG/1 ML VIAL ONE (10:30)
[2017-06-26] MEDS ORDERED: TOBRAMYCIN SULFATE INJ 80 MG/2 ML VIAL NEB SCH (10:30)
[2017-06-26] MEDS ORDERED: DEXAMETHASONE SOD PHOSPHATE INJ 4 MG/1 ML VIAL IV ONE (11:00)
[2017-06-26] MEDS ORDERED: TOBRAMYCIN SULFATE NEB 40 MG/ML 30 ML NEB ONE (11:30)
[2017-06-26] MEDS: OLANZAPINE 5 MG TABLET PO SCH (13:23)
[2017-06-26] MEDS: PIPERACILLIN SODIUM/TAZOBACTAM 3.375 GM in NORMAL SALINE 100 ML IV SCH ×3 (13:24→23:31)
--- NOTE | 2017-06-26 13:51 | PDOC PROGRESS REPORT ---
Subjective Progress Note for:: 06/26/17 Subjective:: Unable to obtain since intubated and sedated Review of systems Unable to obtain since intubated and sedated All significant laboratories and diagnostics have been reviewed Reason For Visit: OVERDOSE Physical Exam Vital Signs: Temp Pulse Resp BP Pulse Ox 99.0 F 110 H 10 L 108/64 100 06/26/17 06:35 06/26/17 05:21 06/26/17 06:35 06/26/17 06:09 06/26/17 06:35 Intake & Output 06/24/17 06/25/17 06/26/17 06:59 06:59 06:59 Intake Total 3475 Output Total 575 2775 Balance -575 700 Weight 93.5 kg General appearance: PRESENT: other - sedated Head exam: PRESENT: atraumatic, normocephalic Eye exam: PRESENT: conjunctiva pink, EOMI, PERRLA Ear exam: PRESENT: normal external ear exam Mouth exam: PRESENT: moist Neck exam: PRESENT: full ROM, JVD, lymphadenopathy. ABSENT: tenderness Respiratory exam: PRESENT: clear to auscultation john Cardiovascular exam: PRESENT: RRR. ABSENT: diastolic murmur, systolic murmur Vascular exam: PRESENT: normal capillary refill GI/Abdominal exam: PRESENT: normal bowel sounds, soft. ABSENT: tenderness Extremities exam: ABSENT: joint swelling, pedal edema Neurological exam: PRESENT: other - sedated. ABSENT: awake Skin exam: PRESENT: intact, normal color Results Laboratory Results: 06/26/17 04:07 06/26/17 04:07 06/25/17 06/26/17 06/26/17 08:42 04:07 04:07 WBC 8.1 RBC 3.03 L Hgb 9.7 L Hct 28.7 L MCV 95 MCH 32.1 MCHC 33.9 RDW 16.0 H Plt Count 248 Seg Neutrophils % 66.1 Lymphocytes % 22.1 Monocytes % 10.5 Eosinophils % 0.9 Basophils % 0.4 Absolute Neutrophils 5.4 Absolute Lymphocytes 1.8 Absolute Monocytes 0.9 Absolute Eosinophils 0.1 Absolute Basophils 0.0 Carbonic Acid 1.14 HCO3/H2CO3 Ratio 18:1 ABG pH 7.36 ABG pCO2 37.8 ABG pO2 101.3 H ABG HCO3 20.7 ABG O2 Saturation 97.4 ABG Base Excess -4.4 FiO2 30% Sodium 144.2 Potassium 3.8 Chloride 115 H Carbon Dioxide 24 Anion Gap 5 BUN 4 L Creatinine 0.58 Est GFR ( Amer) > 60 Est GFR (Non-Af Amer) > 60 Glucose 100 Calcium 8.0 L Magnesium 1.7 Total Bilirubin 0.2 AST 24 ALT 32 Alkaline Phosphatase 57 Total Protein 5.2 L Albumin 2.7 L 06/26/17 05:20 WBC RBC Hgb Hct MCV MCH MCHC RDW Plt Count Seg Neutrophils % Lymphocytes % Monocytes % Eosinophils % Basophils % Absolute Neutrophils Absolute Lymphocytes Absolute Monocytes Absolute Eosinophils Absolute Basophils Carbonic Acid 1.24 HCO3/H2CO3 Ratio 19:1 ABG pH 7.38 ABG pCO2 41.1 ABG pO2 118.1 H ABG HCO3 23.6 ABG O2 Saturation 98.2 H ABG Base Excess -1.5 FiO2 30% Sodium Potassium Chloride Carbon Dioxide Anion Gap BUN Creatinine Est GFR ( Amer) Est GFR (Non-Af Amer) Glucose Calcium Magnesium Total Bilirubin AST ALT Alkaline Phosphatase Total Protein Albumin Impressions: Chest X-Ray 06/26/17 06:00 IMPRESSION: 1. Interval increase in left basilar opacity with possible small left pleural effusion. Assessment & Plan - Diagnosis (1) Drug overdose Qualifiers: Encounter type: initial encounter Injury intent: intentional self-harm Qualified Code(s): T50.902A - Poisoning by unspecified drugs, medicaments and biological substances, intentional self-harm, initial encounter Is this a current diagnosis for this admission?: Yes Plan: Accordingly overdose on Neurontin and trazodone and [place] Coma Scale less than 8 and was intubated. Likely to be extubated today (2) Polysubstance abuse Is this a current diagnosis for this admission?: Yes Plan: To be seen by psych once gets extubated (3) Hypokalemia Is this a current diagnosis for this admission?: Yes Plan: Replaced (4) Acute respiratory failure Qualifiers: Respiratory failure complication: unspecified whether with hypoxia or hypercapnia Qualified Code(s): J96.00 - Acute respiratory failure, unspecified whether with hypoxia or hypercapnia Is this a current diagnosis for this admission?: Yes Plan: Patient required intubation because a low [place] score. Likely to be extubated today (6) Aspiration pneumonia Qualifiers: Laterality: unspecified laterality Lung location: unspecified part of lung Is this a current diagnosis for this admission?: Yes Plan: Discontinue clindamycin and changed to Zosyn IV - Time Time Spent with patient: 15-24 minutes Medications reviewed and adjusted accordingly: Yes Anticipated discharge: Other - Psychiatric facility Within: within 48 hours - Inpatient Certification Based on my medical assessment, after consideration of the patient's comorbidities, presenting symptoms, or acuity I expect that the services needed warrant INPATIENT care.: Yes I certify that my determination is in accordance with my understanding of Medicare's requirements for reasonable and necessary INPATIENT services [42 CFR 412.3e].: Yes Medical Necessity: Need Close Monitoring Due to Risk of Patient Decompensation, Need for IV Antibiotics
--- NOTE | 2017-06-26 15:29 | Physician Advisory Note ---
Physician Advisor ProgressNote .: Pursuant to the plan for [facility], I have reviewed the medical record for this patient. Physician Advisor Statement: Nice documentation in ED note of aspirated food being seen during intubation in ED. Evidence of pneumonia includes tachycardia persistent, depressed respirations then tachypnea, hypoxemia, hypothermia then fever, development of Lt basilar opacity (infiltrate) after initially clear CXR. Thanks! CK
--- NOTE | 2017-06-26 19:37 | PSYCHOLOGICAL NOTE ---
Psych Note - Psych Note Psych Note: Reason for consult: OD Contact: Unknown, possible friend's mother where she was staying (friend is another ICU patient) Patient is a 32 year old female who is in ICU for an intentional OD. Patient was placed on IVC today (06/26/16). Attending nurse, Vanda, informed this clinician patient was extubated today and it would be at least another 24 hours before medical clearance. When being extubated patient tried to kick staff, was tearful and very upset. Nurse stated biological mother did visit. She stated another ICU patient's mother was the one who found patient unresponsive on the floor (patient is friend's with this ICU patient and had been staying with her at the friend's mother's home). Diagnosis: Intentional OD 311 (F32.9) Unspecified Depressive Disorder Impression/Plan: Patient placed on IVC due to intentional OD which resulted in intubation for a day. Did not conduct evaluation given patient was just extubated and still lethargic. Will assess tomorrow.
[2017-06-26] MEDS: TOBRAMYCIN SULFATE NEB 40 MG/ML 30 ML NEB SCH (20:27)
[2017-06-27] MEDS: IPRATROPIUM/ALBUTEROL 0.5-2.5 MG/3 ML AMPUL NEB SCH ×4 (02:11→20:11)
[2017-06-27 04:23] LABS: ABSOLUTE MONOCYTES (AUTO) 0.6 10^3/uL (0.1-1.4); ABSOLUTE NEUT (AUTO) 5.6 10^3/uL (1.7-8.2); BASOPHILS % (AUTO) 0.2 % (0-2); HEMOGLOBIN 10.7 g/dL (12.0-15.5); LYMPHOCYTES % (AUTO) 13.8 % (13-45); MEAN CORPUSCULAR HEMOGLOBIN 32.7 pg (27.0-33.4); MEAN CORPUSCULAR HGB CONC 34.5 g/dL (32.0-36.0); MEAN CORPUSCULAR VOLUME 95 fl (80-97); MONOCYTES % (AUTO) 8.7 % (3-13); PLATELET COUNT 271 10^3/uL (150-450); RED BLOOD COUNT 3.27 10^6/uL (3.72-5.28); RED CELL DISTRIBUTION WIDTH 15.8 % (11.5-14.0); SEGMENTED NEUTROPHILS % (AUTO) 77.3 % (42-78); TOTAL CELLS COUNTED % (AUTO) 100 %; WHITE BLOOD COUNT 7.3 10^3/uL (4.0-10.5)
[2017-06-27 04:43] LABS: ALANINE AMINOTRANSFERASE 24 U/L (9-52); ALBUMIN 3.6 g/dL (3.5-5.0); ALKALINE PHOSPHATASE 56 U/L (38-126); ANION GAP 12 (5-19); ASPARTATE AMINO TRANSFERASE 18 U/L (14-36); BILIRUBIN,DIRECT 0.1 mg/dL (0.0-0.4); BILIRUBIN,TOTAL 0.3 mg/dL (0.2-1.3); BLOOD UREA NITROGEN 3 mg/dL (7-20); CALCIUM 9.4 mg/dL (8.4-10.2); CARBON DIOXIDE 21 mmol/L (22-30); CHLORIDE 113 mmol/L (98-107); GLUCOSE 188 mg/dL (75-110); MAGNESIUM 1.8 mg/dL (1.6-2.3); POTASSIUM 3.5 mmol/L (3.6-5.0); SODIUM 146.4 mmol/L (137-145); TOTAL PROTEIN 6.4 g/dL (6.3-8.2)
[2017-06-27] MEDS: PIPERACILLIN SODIUM/TAZOBACTAM 3.375 GM in NORMAL SALINE 100 ML IV SCH (06:13)
[2017-06-27] MEDS: METRONIDAZOLE 500 MG TABLET PO SCH ×3 (06:13→21:16)
[2017-06-27] MEDS: HEPARIN SOD (PORCINE) 5,000 UNIT/ML 1 ML SYRINGE SUBCUT SCH ×3 (06:30→21:15)
--- NOTE | 2017-06-27 07:23 | RADIOLOGY REPORT (SQ) ---
EXAM DESCRIPTION: CHEST SINGLE VIEW CLINICAL HISTORY: Pt extubated yesterday COMPARISON: 06/25/2017 FINDINGS: Single frontal view of the chest. Removal of endotracheal tube and NG tube. Improved aeration of the left lung base with minimal residual left basilar opacities. No pneumothorax identified. No acute osseous abnormalities. Upper abdominal soft tissues are unremarkable. IMPRESSION: 1. Interval removal of NG tube and endotracheal tube. 2. Interval improved aeration of the left lung. Electronically signed by: Abisai Holt 06/27/2017 6:22 AM [facility]
[2017-06-27] MEDS: TOBRAMYCIN SULFATE NEB 40 MG/ML 30 ML NEB SCH (07:59)
[2017-06-27] MEDS: OLANZAPINE 5 MG TABLET PO SCH (11:12)
--- NOTE | 2017-06-27 12:31 | PDOC PROGRESS REPORT ---
Subjective Progress Note for:: 06/27/17 Subjective:: Patient relates that she overdosed on Neurontin. She states that there are a lot of bad stuff happening in her life. Patient developed diarrhea yesterday and tested positive for C. difficile. Accordingly she had been treated recently with Cipro and another kind of antibiotic. Review of systems All organ systems reviewed and negative except as in subjective All significant laboratories and diagnostics have been reviewed Reason For Visit: OVERDOSE Physical Exam Vital Signs: Temp Pulse Resp BP Pulse Ox 97.5 F 103 H 18 117/75 98 06/27/17 06:20 06/27/17 03:59 06/27/17 06:20 06/27/17 05:10 06/27/17 06:20 Intake & Output 06/26/17 06/27/17 06/28/17 06:59 06:59 06:59 Intake Total 3475 4447 Output Total 2775 60230 Balance 700 -5902 Weight 93.5 kg 89.4 kg General appearance: PRESENT: cooperative, well-developed, well-nourished Head exam: PRESENT: atraumatic, normocephalic Eye exam: PRESENT: EOMI, PERRLA Ear exam: PRESENT: normal external ear exam Mouth exam: PRESENT: moist Neck exam: PRESENT: full ROM. ABSENT: JVD, lymphadenopathy, tenderness Respiratory exam: PRESENT: clear to auscultation john Cardiovascular exam: PRESENT: RRR. ABSENT: diastolic murmur, systolic murmur Vascular exam: PRESENT: normal capillary refill GI/Abdominal exam: PRESENT: normal bowel sounds, soft. ABSENT: tenderness Extremities exam: PRESENT: full ROM. ABSENT: joint swelling, pedal edema Musculoskeletal exam: PRESENT: ambulatory Neurological exam: PRESENT: alert, awake, oriented to person, oriented to place , oriented to time, oriented to situation, CN II-XII grossly intact Psychiatric exam: PRESENT: appropriate affect, normal mood Skin exam: PRESENT: intact, normal color Results Laboratory Results: 06/27/17 04:16 06/27/17 04:16 06/27/17 06/27/17 04:16 04:16 WBC 7.3 RBC 3.27 L Hgb 10.7 L Hct 31.0 L MCV 95 MCH 32.7 MCHC 34.5 RDW 15.8 H Plt Count 271 Seg Neutrophils % 77.3 Lymphocytes % 13.8 Monocytes % 8.7 Eosinophils % 0.0 Basophils % 0.2 Absolute Neutrophils 5.6 Absolute Lymphocytes 1.0 Absolute Monocytes 0.6 Absolute Eosinophils 0.0 Absolute Basophils 0.0 Sodium 146.4 H Potassium 3.5 L Chloride 113 H Carbon Dioxide 21 L Anion Gap 12 BUN 3 L Creatinine 0.52 Est GFR ( Amer) > 60 Est GFR (Non-Af Amer) > 60 Glucose 188 H Calcium 9.4 Magnesium 1.8 Total Bilirubin 0.3 AST 18 ALT 24 Alkaline Phosphatase 56 Total Protein 6.4 Albumin 3.6 Impressions: Chest X-Ray 06/27/17 06:00 IMPRESSION: 1. Interval removal of NG tube and endotracheal tube. 2. Interval improved aeration of the left lung. Assessment & Plan - Diagnosis (1) Drug overdose Qualifiers: Encounter type: initial encounter Injury intent: intentional self-harm Qualified Code(s): T50.902A - Poisoning by unspecified drugs, medicaments and biological substances, intentional self-harm, initial encounter Is this a current diagnosis for this admission?: Yes Plan: Accordingly overdose on Neurontin and trazodone and [place] Coma Scale less than 8 and was intubated. Patient being followed up by psychiatry service (2) Polysubstance abuse Is this a current diagnosis for this admission?: Yes Plan: To be seen by psychiatry service (3) Hypokalemia Is this a current diagnosis for this admission?: Yes Plan: Replaced (4) Acute respiratory failure Qualifiers: Respiratory failure complication: unspecified whether with hypoxia or hypercapnia Qualified Code(s): J96.00 - Acute respiratory failure, unspecified whether with hypoxia or hypercapnia Is this a current diagnosis for this admission?: Yes Plan: Patient required intubation because a low [place] score. Patient extubated on June 26 and had been doing well (5) Aspiration pneumonia Qualifiers: Aspiration pneumonia type: due to regurgitated food Lung location: unspecified part of lung Is this a current diagnosis for this admission?: Yes Plan: There has been improvement of irrigation of the left long. Will place patient on Augmentin (6) C. difficile diarrhea Is this a current diagnosis for this admission?: Yes Plan: Continue Flagyl p.o. - Time Time Spent with patient: 15-24 minutes Medications reviewed and adjusted accordingly: Yes Anticipated discharge: Other - Possible to a psychiatric institution Within: within 48 hours - Inpatient Certification Based on my medical assessment, after consideration of the patient's comorbidities, presenting symptoms, or acuity I expect that the services needed warrant INPATIENT care.: Yes I certify that my determination is in accordance with my understanding of Medicare's requirements for reasonable and necessary INPATIENT services [42 CFR 412.3e].: Yes Medical Necessity: Need Close Monitoring Due to Risk of Patient Decompensation
[2017-06-27] MEDS ORDERED: POTASSIUM CHLORIDE 10 MEQ TABLET.SA PO ONE (13:30)
[2017-06-27] MEDS: AMOXICILLIN TR/POT CLAVULANATE 500-125 MG TAB PO SCH ×2 (15:22→21:16)
[2017-06-27] MEDS: PSYLLIUM SEED-SF 5.85 GM PACKET PO SCH (18:37)
[2017-06-27] MEDS: LACTOBACILLUS ACIDOPHILUS 250 MG TAB PO SCH (18:37)
[2017-06-28] MEDS: IPRATROPIUM/ALBUTEROL 0.5-2.5 MG/3 ML AMPUL NEB SCH ×4 (01:47→19:49)
[2017-06-28] MEDS: AMOXICILLIN TR/POT CLAVULANATE 500-125 MG TAB PO SCH ×3 (05:32→22:31)
[2017-06-28] MEDS: HEPARIN SOD (PORCINE) 5,000 UNIT/ML 1 ML SYRINGE SUBCUT SCH ×3 (05:32→22:31)
[2017-06-28] MEDS: METRONIDAZOLE 500 MG TABLET PO SCH ×3 (05:32→22:31)
[2017-06-28] MEDS: PSYLLIUM SEED-SF 5.85 GM PACKET PO SCH ×2 (09:58→17:41)
[2017-06-28] MEDS: LACTOBACILLUS ACIDOPHILUS 250 MG TAB PO SCH ×2 (09:58→17:41)
[2017-06-28] MEDS: CLONAZEPAM 1 MG TABLET PO PRN (12:43)
[2017-06-28] MEDS: OLANZAPINE 5 MG TABLET PO SCH (12:43)
--- NOTE | 2017-06-28 18:11 | PDOC PROGRESS REPORT ---
Subjective Progress Note for:: 06/28/17 Subjective:: She states that diarrhea is better. She would like to be back on Klonopin because of her anxiety Review of systems All organ systems reviewed and negative except as in subjective All significant laboratories and diagnostics have been reviewed Reason For Visit: OVERDOSE Physical Exam Vital Signs: Temp Pulse Resp BP Pulse Ox 97.7 F 99 16 103/59 L 98 06/28/17 08:51 06/28/17 08:51 06/28/17 08:51 06/28/17 08:51 06/28/17 08:51 Intake & Output 06/27/17 06/28/17 06/29/17 06:59 06:59 06:59 Intake Total 4447 1240 Output Total 85859 420 Balance -5968 820 Weight 89.4 kg 86.8 kg General appearance: PRESENT: cooperative, obese. ABSENT: well-developed Head exam: PRESENT: atraumatic, normocephalic Eye exam: PRESENT: conjunctiva pink, EOMI, scleral icterus Mouth exam: PRESENT: moist Neck exam: PRESENT: full ROM, tenderness. ABSENT: JVD, lymphadenopathy Respiratory exam: PRESENT: clear to auscultation john Cardiovascular exam: PRESENT: RRR. ABSENT: diastolic murmur, systolic murmur Vascular exam: PRESENT: normal capillary refill GI/Abdominal exam: PRESENT: normal bowel sounds, soft. ABSENT: tenderness Extremities exam: PRESENT: full ROM. ABSENT: joint swelling, pedal edema Musculoskeletal exam: PRESENT: ambulatory Neurological exam: PRESENT: alert, awake, oriented to person, oriented to place , oriented to time, oriented to situation, CN II-XII grossly intact Psychiatric exam: PRESENT: appropriate affect, normal mood Skin exam: PRESENT: intact, normal color Results Laboratory Results: 06/27/17 04:16 06/27/17 04:16 06/25/17 15:10 Tracheal Aspirate Gram Stain - Final 06/25/17 15:10 Tracheal Aspirate Sputum Culture - Final Enterobacter Cloacae Mrsa (Meth Resis Staph Aureus) Normal Pauline Absent Impressions: Chest X-Ray 06/27/17 06:00 IMPRESSION: 1. Interval removal of NG tube and endotracheal tube. 2. Interval improved aeration of the left lung. Assessment & Plan - Diagnosis (1) Drug overdose Qualifiers: Encounter type: initial encounter Injury intent: intentional self-harm Qualified Code(s): T50.902A - Poisoning by unspecified drugs, medicaments and biological substances, intentional self-harm, initial encounter Is this a current diagnosis for this admission?: Yes Plan: Patient cleared for placement (2) Polysubstance abuse Is this a current diagnosis for this admission?: Yes Plan: Clear for placement (3) Hypokalemia Is this a current diagnosis for this admission?: Yes Plan: Replaced (4) Acute respiratory failure Qualifiers: Respiratory failure complication: unspecified whether with hypoxia or hypercapnia Qualified Code(s): J96.00 - Acute respiratory failure, unspecified whether with hypoxia or hypercapnia Is this a current diagnosis for this admission?: Yes Plan: Patient required intubation because a low [place] score. Patient extubated on June 26 and had been doing well (5) Aspiration pneumonia Qualifiers: Aspiration pneumonia type: due to regurgitated food Lung location: unspecified part of lung Is this a current diagnosis for this admission?: Yes Plan: Continue Augmentin. (6) C. difficile diarrhea Is this a current diagnosis for this admission?: Yes Plan: Continue Flagyl p.o. (7) Anxiety Is this a current diagnosis for this admission?: Yes Plan: Start Klonopin - Time Time Spent with patient: 15-24 minutes Medications reviewed and adjusted accordingly: Yes Anticipated discharge: Other - For placement bed available - Inpatient Certification Based on my medical assessment, after consideration of the patient's comorbidities, presenting symptoms, or acuity I expect that the services needed warrant INPATIENT care.: Yes I certify that my determination is in accordance with my understanding of Medicare's requirements for reasonable and necessary INPATIENT services [42 CFR 412.3e].: Yes Medical Necessity: Need Close Monitoring Due to Risk of Patient Decompensation
[2017-06-29] MEDS: IPRATROPIUM/ALBUTEROL 0.5-2.5 MG/3 ML AMPUL NEB SCH ×4 (02:42→20:07)
[2017-06-29] MEDS: METRONIDAZOLE 500 MG TABLET PO SCH ×3 (06:30→21:11)
[2017-06-29] MEDS: HEPARIN SOD (PORCINE) 5,000 UNIT/ML 1 ML SYRINGE SUBCUT SCH (06:30)
[2017-06-29] MEDS: AMOXICILLIN TR/POT CLAVULANATE 500-125 MG TAB PO SCH ×3 (06:30→21:11)
[2017-06-29] MEDS: CLONAZEPAM 1 MG TABLET PO PRN ×3 (08:57→23:01)
[2017-06-29] MEDS: PSYLLIUM SEED-SF 5.85 GM PACKET PO SCH ×2 (08:57→17:42)
[2017-06-29] MEDS: LACTOBACILLUS ACIDOPHILUS 250 MG TAB PO SCH ×2 (08:57→17:41)
[2017-06-29] MEDS: OLANZAPINE 5 MG TABLET PO SCH (11:27)
--- NOTE | 2017-06-29 11:36 | PSYCHOLOGICAL NOTE ---
Psych Note - Psych Note Psych Note: Clinician notes this patient has second chart [id number] Reason for consult: Intentional overdose Contact: none given Patient is a 32 year old female who is in ICU for an intentional OD. Patient was placed on IVC today (06/26/16). When patient was asked if she intentionally overdosed on her medications she stated "not necessarily on purpose.. I knew something bad was going to happen... I just did not care." Patient continued to disclose concern that all of her medications were changed while her stay at [facility] "I have been on Prozac Neurontin lithium and Xanax for years while they change them?" Clinician explained that if the patient has needed inpatient psychiatric treatment upwards to twice a year her medications were not working, which is why [facility] most likely change them. Patient is alert and orientated to person, place, time and circumstance. Mood is euthymic with congruent affect. Patient endorses suicidal ideation with intentional overdose. Patient denies homicidal ideation. Delusions are absent behaviors congruent with intact reality based presentation i.e. organized, linear, rational thinking. Eye contact was well-maintained. Conversational speech was within normal rate, tone and prosody. Intellectual abilities appear to be within average range. Attention and concentration are fair. Insight, judgment, impulse control are poor. Collateral obtained during previous psychiactric evaluation (06/05/2017) Patient was seen for intentional overdose and was inpatient with [facility] from 2017- 06/10/2017 Patient's mother, Sara, disclosed the patient has severe depression and has " no will to live." She continued to report that she must constantly watch the patient. She continues state the patient is a drug addict. Patient family are originally from [place]. They came here to get a "better life and away from my exsband." She describes the patient as a self mutilator who normally cuts her chest. She disclosed the patient has to go inpatient for psychiatric treatment every 4-5 months. At first she does really well however she stopped taking her medication and then ends up relapsing with drugs. After his relapse occurs she becomes suicidal and attempts. She warns the patient will "manipulate people an attempt to convince them to let her leave." It is recommended that the previous medication recommendations per [facility]'s contracted psychiatrist is continue at this time, these are: Depakote 500mg Twice daily Buspar 10mg Twice daily 1. 311 (F32.9) Unspecified Depressive Disorder 2. 309.81 (F43.10) Post traumatic Stress Disorder, by patient report 2. 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 Patient admits to intentional overdose in an attempt to kill herself. Patient has poor insight , judgment, and impulse control. At this time, it appears the patient's substance abuse is secondary to her psychiatric instability (i.e. she uses illegal substances to self medicate). Patient was transferred to [facility] on 06/10/2017 and was not discharged until 06/17/2017 from their facility. Inpatient psychiatric placement will be sought once medically cleared. Dr. Galvan was consulted in the care and management of this patient; attending physician in agreement with recommendations and disposition.
--- NOTE | 2017-06-29 11:51 | PSYCHOLOGICAL NOTE ---
Psych Note - Psych Note Psych Note: Clinician notes this patient has second chart [id number] Reason for consult: Intentional overdose Contact: none given Patient is a 32 year old female who is in ICU for an intentional OD. Patient was placed on IVC today (06/26/16). Behavior health team contacted attending nurse. Attending nurse identified patient is currently medically clear however still needs continued treatment for C. diff. Once attending physician submits note identifying patient is medically clear behavior health team will start seeking inpatient treatment. It is recommended that the previous medication recommendations per [facility]'s contracted psychiatrist is continue at this time, these are: Depakote 500mg Twice daily Buspar 10mg Twice daily 1. 311 (F32.9) Unspecified Depressive Disorder 2. 309.81 (F43.10) Post traumatic Stress Disorder, by patient report 2. 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 Patient admits to intentional overdose in an attempt to kill herself. Patient has poor insight , judgment, and impulse control. At this time, it appears the patient's substance abuse is secondary to her psychiatric instability (i.e. she uses illegal substances to self medicate). Patient was transferred to [facility] on 06/10/2017 and was not discharged until 06/17/2017 from their facility. Inpatient psychiatric placement will be sought once medically cleared. Dr. Galvan was consulted in the care and management of this patient; attending physician in agreement with recommendations and disposition.
[2017-06-29] MEDS ORDERED: OXYCODONE HCL IR 5 MG TABLET PO ONE (13:56)
--- NOTE | 2017-06-29 15:54 | PDOC PROGRESS REPORT ---
Subjective Progress Note for:: 06/29/17 Subjective:: Patient is a 32-year-old female with past medical history of Decompensated bipolar depression Suicide attempt by medication overdose She was found unresponsive by her landlord with an empty prescription bottle of gabapentin and was suspected to also have taken trazodone. The patient was admitted to inpatient psychiatry in May 2021. In the emergency room she was suspected to have aspirated and unable to protect her airway and therefore was intubated and referred for admission. As noted that she had superficial left wrist lacerations and labs were positive for cocaine and marijuana. Reason For Visit: OVERDOSE Physical Exam Vital Signs: Temp Pulse Resp BP Pulse Ox 97.5 F 104 H 18 97/65 L 99 06/29/17 08:43 06/29/17 08:43 06/29/17 08:43 06/29/17 08:43 06/29/17 08:43 Intake & Output 06/28/17 06/29/17 06/30/17 06:59 06:59 06:59 Intake Total 1240 750 Output Total 420 Balance 820 750 Weight 86.8 kg 66.5 kg Additional comments: Female sitting in bed not in acute distress HEENT: Pupils reactive light moist microfungi mucosa Neck is supple trachea is midline Lungs: Clear to auscultation bilaterally, normal respiratory effort Abdomen: Soft nontender nondistended Skin: Warm and dry Neurologic: No facial droop, speech with no slurring. Results Laboratory Results: 06/27/17 04:16 06/27/17 04:16 06/25/17 15:10 Tracheal Aspirate Gram Stain - Final 06/25/17 15:10 Tracheal Aspirate Sputum Culture - Final Enterobacter Cloacae Mrsa (Meth Resis Staph Aureus) Normal Pauline Absent Impressions: Chest X-Ray 06/27/17 06:00 IMPRESSION: 1. Interval removal of NG tube and endotracheal tube. 2. Interval improved aeration of the left lung. Assessment & Plan - Diagnosis (1) Aspiration into airway Qualifiers: Encounter type: initial encounter Qualified Code(s): T17.908A - Unspecified foreign body in respiratory tract, part unspecified causing other injury, initial encounter Is this a current diagnosis for this admission?: Yes Plan: Continue Augmentin. (2) C. difficile diarrhea Is this a current diagnosis for this admission?: Yes Plan: Continue Flagyl and probiotics. (3) Hypokalemia Is this a current diagnosis for this admission?: Yes Plan: Replace. (4) Polysubstance abuse Is this a current diagnosis for this admission?: Yes (5) Self-harming behavior Is this a current diagnosis for this admission?: Yes - Time Time Spent with patient: 35 or more minutes - Plan Summary Plan Summary: Medically cleared to be at a inpatient psychiatric facility.
--- NOTE | 2017-06-29 16:52 | PSYCHOLOGICAL NOTE ---
Psych Note - Psych Note Psych Note: Clinician notes this patient has second chart [id number] Reason for consult: Intentional overdose Contact: none given Patient is a 32 year old female who is in ICU for an intentional OD. Patient was placed on IVC (06/26/16). Inpatient psychiatric hospitals are requesting verification of a negative c.diff test. Once patient is cleared for C diff, Behavioral health team will continue seeking placement. check in conducted with patient Patient disclosed she is having trouble sleeping and is hoping she can get something to assist this. Patient disclosed that Benadryl has helped her greatly in the past. Patient continued disclosed that she is expecting in a visitor and was wondering when visiting hours were; her concern is that the visiting does not have transportation so is reliant on others. Clinician discussed with patient about ensuring she takes her medication even if she has woken while sleeping. Patient confirms she understands this. It is recommended that the previous medication recommendations per [facility]'s contracted psychiatrist is continue at this time, these are: Vistaril 50 mg at bedtime Depakote 500mg Twice daily Buspar 10mg Twice daily 1. 311 (F32.9) Unspecified Depressive Disorder 2. 309.81 (F43.10) Post traumatic Stress Disorder, by patient report 2. 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 Patient admits to intentional overdose in an attempt to kill herself. Patient has poor insight , judgment, and impulse control. At this time, it appears the patient's substance abuse is secondary to her psychiatric instability (i.e. she uses illegal substances to self medicate). Patient was transferred to [facility] on 06/10/2017 and was not discharged until 06/17/2017 from their facility. Inpatient psychiatric placement will be sought once medically cleared. Dr. Galvan was consulted in the care and management of this patient; attending physician in agreement with recommendations and disposition.
[2017-06-30] MEDS: IPRATROPIUM/ALBUTEROL 0.5-2.5 MG/3 ML AMPUL NEB SCH ×4 (02:19→19:24)
[2017-06-30] MEDS: AMOXICILLIN TR/POT CLAVULANATE 500-125 MG TAB PO SCH ×3 (06:11→21:15)
[2017-06-30] MEDS: METRONIDAZOLE 500 MG TABLET PO SCH ×3 (06:11→21:15)
[2017-06-30] MEDS: CLONAZEPAM 1 MG TABLET PO PRN ×3 (07:41→23:07)
[2017-06-30 08:19] LABS: ALBUMIN 4.1 g/dL (3.5-5.0); ANION GAP 13 (5-19); CARBON DIOXIDE 23 mmol/L (22-30); CHLORIDE 103 mmol/L (98-107); GLUCOSE 123 mg/dL (75-110); POTASSIUM 4.5 mmol/L (3.6-5.0); SODIUM 139.2 mmol/L (137-145)
[2017-06-30 08:20] LABS: ALANINE AMINOTRANSFERASE 93 U/L (9-52); ALKALINE PHOSPHATASE 83 U/L (38-126); ASPARTATE AMINO TRANSFERASE 99 U/L (14-36); BILIRUBIN,DIRECT 0.5 mg/dL (0.0-0.4); BILIRUBIN,TOTAL 0.5 mg/dL (0.2-1.3); BLOOD UREA NITROGEN 15 mg/dL (7-20); CALCIUM 10.6 mg/dL (8.4-10.2); MAGNESIUM 1.9 mg/dL (1.6-2.3); PHOSPHORUS 4.1 mg/dL (2.5-4.5)
--- NOTE | 2017-06-30 10:32 | PDOC PROGRESS REPORT ---
Subjective Progress Note for:: 06/30/17 Subjective:: Patient is a 32-year-old female with past medical history of Decompensated bipolar depression Suicide attempt by medication overdose She was found unresponsive by her landlord with an empty prescription bottle of gabapentin and was suspected to also have taken trazodone. The patient was admitted to inpatient psychiatry in May 2021. In the emergency room she was suspected to have aspirated and unable to protect her airway and therefore was intubated and referred for admission. As noted that she had superficial left wrist lacerations and labs were positive for cocaine and marijuana. She was started on Flagyl for C. difficile diarrhea. This has improved. She has not had a bowel movement for the past 2 days. Patient is complaining of a migraine and is requesting Fioricet. She is also requesting that her Klonopin dose be increased to 2 mg every 8 hours as needed which is what she was taking at home. The patient also requests Benadryl 50 mg to help her sleep at night. Reason For Visit: OVERDOSE Physical Exam Vital Signs: Temp Pulse Resp BP Pulse Ox 97.5 F 94 16 96/65 L 99 06/30/17 05:00 06/30/17 08:12 06/30/17 08:12 06/30/17 05:00 06/30/17 05:00 Intake & Output 06/29/17 06/30/17 07/01/17 06:59 06:59 06:59 Intake Total 750 Balance 750 Weight 87 kg 87.7 kg Additional comments: Female sitting in bed not in acute distress HEENT: Pupils reactive light moist oral pharyngeal mucosa Neck is supple trachea is midline Lungs: Clear to auscultation bilaterally, normal respiratory effort Abdomen: Soft nontender nondistended, normal bowel sounds Skin: Warm and dry Psych: Awake and alert oriented 3 normal mood and affect Results Laboratory Results: 06/27/17 04:16 06/30/17 07:32 06/30/17 07:32 Sodium 139.2 Potassium 4.5 Chloride 103 Carbon Dioxide 23 Anion Gap 13 BUN 15 Creatinine 0.69 Est GFR ( Amer) > 60 Est GFR (Non-Af Amer) > 60 Glucose 123 H Calcium 10.6 H Phosphorus 4.1 Magnesium 1.9 Total Bilirubin 0.5 AST 99 H ALT 93 H Alkaline Phosphatase 83 Total Protein 8.0 Albumin 4.1 06/25/17 08:07 Blood Blood Culture - Final NO GROWTH IN 5 DAYS 06/25/17 06:35 Blood Blood Culture - Final NO GROWTH IN 5 DAYS Impressions: Chest X-Ray 06/27/17 06:00 IMPRESSION: 1. Interval removal of NG tube and endotracheal tube. 2. Interval improved aeration of the left lung. Assessment & Plan - Diagnosis (1) Aspiration into airway Qualifiers: Encounter type: subsequent encounter Qualified Code(s): T17.908D - Unspecified foreign body in respiratory tract, part unspecified causing other injury, subsequent encounter Is this a current diagnosis for this admission?: Yes Plan: Continue Augmentin. (2) C. difficile diarrhea Is this a current diagnosis for this admission?: Yes Plan: Continue Flagyl and probiotics. (3) Hypokalemia Is this a current diagnosis for this admission?: Yes Plan: Replace. (4) Polysubstance abuse Is this a current diagnosis for this admission?: Yes Plan: Management per psychiatry service. (5) Self-harming behavior Is this a current diagnosis for this admission?: Yes Plan: Plan for inpatient psychiatric treatment. She is medically cleared. - Time Time Spent with patient: 25-34 minutes
[2017-06-30] MEDS: PSYLLIUM SEED-SF 5.85 GM PACKET PO SCH ×2 (10:53→17:03)
[2017-06-30] MEDS: BUTALB/ACETAMINOPHEN/CAFFEINE 1 TAB EACH PO PRN ×3 (10:53→23:08)
[2017-06-30] MEDS: LACTOBACILLUS ACIDOPHILUS 250 MG TAB PO SCH ×2 (10:53→17:03)
[2017-06-30] MEDS: OLANZAPINE 5 MG TABLET PO SCH (13:05)
[2017-06-30] MEDS: MAGNESIUM OXIDE 400 MG TABLET PO SCH (13:05)
[2017-06-30] MEDS: DIPHENHYDRAMINE HCL 50 MG CAPSULE PO SCH (21:15)
[2017-07-01] MEDS: IPRATROPIUM/ALBUTEROL 0.5-2.5 MG/3 ML AMPUL NEB SCH (02:08)
[2017-07-01] MEDS: METRONIDAZOLE 500 MG TABLET PO SCH ×3 (05:53→21:45)
[2017-07-01] MEDS: AMOXICILLIN TR/POT CLAVULANATE 500-125 MG TAB PO SCH (05:53)
[2017-07-01] MEDS: BUTALB/ACETAMINOPHEN/CAFFEINE 1 TAB EACH PO PRN (06:56)
[2017-07-01] MEDS: CLONAZEPAM 1 MG TABLET PO PRN (06:57)
[2017-07-01] MEDS ORDERED: IPRATROPIUM/ALBUTEROL 0.5-2.5 MG/3 ML AMPUL NEB PRN (08:25)
[2017-07-01] MEDS ORDERED: DIVALPROEX SODIUM 500 MG TAB.SR.24H PO SCH ×2 (09:00→10:00)
[2017-07-01] MEDS ORDERED: LORAZEPAM INJ 2 MG/1 ML VIAL ONE (09:58)
[2017-07-01] MEDS ORDERED: BENZTROPINE MESYLATE INJ 2 MG/2 ML AMPULE IM ONE (10:00)
[2017-07-01] MEDS ORDERED: OLANZAPINE INJ/PF 10 MG SDV IM ONE (10:00)
[2017-07-01] MEDS ORDERED: LEVOFLOXACIN 750 MG TABLET PO SCH (10:00)
[2017-07-01] MEDS ORDERED: BUSPIRONE HCL 10 MG TABLET PO SCH (10:00)
[2017-07-01] MEDS ORDERED: LORAZEPAM INJ 2 MG/1 ML VIAL IM ONE (10:30)
[2017-07-01] MEDS: DOXYCYCLINE HYCLATE 100 MG TABLET PO SCH ×2 (10:31→20:20)
[2017-07-01] MEDS: PSYLLIUM SEED-SF 5.85 GM PACKET PO SCH ×2 (11:56→18:12)
[2017-07-01] MEDS: BENZTROPINE MESYLATE 1 MG TABLET PO SCH (11:56)
[2017-07-01] MEDS: OLANZAPINE 5 MG TABLET PO SCH ×2 (11:56→18:12)
[2017-07-01] MEDS: MAGNESIUM OXIDE 400 MG TABLET PO SCH (11:56)
[2017-07-01] MEDS: FLUOXETINE HCL 20 MG CAPSULE PO SCH (11:56)
[2017-07-01] MEDS: LACTOBACILLUS ACIDOPHILUS 250 MG TAB PO SCH ×2 (11:56→18:12)
--- NOTE | 2017-07-01 12:09 | PSYCHOLOGICAL NOTE ---
Psych Note - Psych Note Psych Note: Reason for consult: Intentional overdose, continued IVC Contacts given: None given Patient is a 32 year old female who is on the 2nd floor in Room 216 for an intentional overdose. Patient was placed on IVC (06/26/16). Inpatient psychiatric hospitals are requesting verification of a negative c.diff test. Once patient is cleared for c. diff, behavioral health team will continue seeking placement. Check in conducted with patient: Patient requested to speak with the behavioral health team because she feels no one is listening to her. Patient does not want to take the medications recommended by the contracted [facility] psychiatrist. She stated she overdosed on one of the medications previously and doesn't want to take it. Patient stated she wants her Klonopin, Adderall and Topamax prescribed again. She stated she is having a hard time focusing without her Adderall. This family development specialist observed several superficial scratches on her interior left forearm. The nurse reported she had broken an instrument in her room and scratched her arm. The nurse reported the patient threatened to punch the nurses and called her nurse a "stupid little cunt." This family development specialist discussed appropriate interactions with nursing staff and possible responses for continued aggressive behaviors (i.e. restraints). Agreed to pass medication concerns to [facility] supervisors. Patient stated she wanted to take a shower but was told that with her receiving medications within the past fifteen minutes she was considered a fall risk and could not take a shower. She then asked if she could have a nurse clean and bandage her arm where she had scratched it. She demanded a different nurse because she "doesn't like her." This family development specialist explained that she had to maintain the same nurse and aggressive behaviors towards the nurse would result in restraints being ordered. The patient agreed to interact appropriately with her nurse and allow her to clean her wounds without aggression. All information verbally communicated to Dr. Galvan. Below are updated medication recommendations made after Dr. Galvan met with the patient. Medication Recommendations from contracted [facility] psychiatrist: Zyprexa 5mg BID Prozac 20mg Daily Cogentin 1 mg Daily Seroquel 50 mg qhs Buspar 10mg BID Clonidine 0.1 patch/q3 days Vistaril 50 mg q6 prn 1. 311 (F32.9) Unspecified Depressive Disorder 2. 309.81 (F43.10) Post traumatic Stress Disorder, by patient report 2. 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 Patient admits to intentional overdose in an attempt to kill herself. Patient has poor insight , judgment, and impulse control. At this time, it appears the patient's substance abuse is secondary to her psychiatric instability (i.e. she uses illegal substances to self medicate). Inpatient psychiatric placement will be sought once medically cleared. Dr. Galvan was consulted in the care and management of this patient; attending physician in agreement with recommendations and disposition.
[2017-07-01] MEDS: HYDROXYZINE PAMOATE 50 MG CAPSULE PO PRN (16:02)
--- NOTE | 2017-07-01 17:09 | PDOC PROGRESS REPORT ---
Subjective Progress Note for:: 07/01/17 Subjective:: Patient is quite agitated today at times belligerent, uncooperative as many medications requests She threatened the staff and had to be forcefully medicated Medications were reevaluated by psychiatry Reason For Visit: OVERDOSE Physical Exam Vital Signs: Temp Pulse Resp BP Pulse Ox 97.4 F 97 16 122/73 100 07/01/17 15:43 07/01/17 15:43 07/01/17 15:43 07/01/17 15:43 07/01/17 15:43 Intake & Output 06/30/17 07/01/17 07/02/17 00:59 00:59 00:59 Intake Total 750 1640 960 Balance 750 1640 960 Weight 87 kg 87.7 kg 86.9 kg General appearance: PRESENT: no acute distress, disheveled Head exam: PRESENT: atraumatic, normocephalic Eye exam: PRESENT: conjunctiva pink, EOMI, PERRLA. ABSENT: scleral icterus Neck exam: ABSENT: carotid bruit, JVD, lymphadenopathy, thyromegaly Respiratory exam: PRESENT: clear to auscultation john. ABSENT: rales, rhonchi, wheezes Pulses: PRESENT: normal dorsalis pedis pul GI/Abdominal exam: PRESENT: normal bowel sounds, soft. ABSENT: distended, guarding, mass, organolmegaly, rebound, tenderness Neurological exam: PRESENT: alert, awake, CN II-XII grossly intact Psychiatric exam: PRESENT: agitated, manic Focused psych exam: PRESENT: restlessness Skin exam: PRESENT: dry, intact, warm. ABSENT: cyanosis, rash Results Laboratory Results: 06/27/17 04:16 06/30/17 07:32 Impressions: Chest X-Ray 06/27/17 06:00 IMPRESSION: 1. Interval removal of NG tube and endotracheal tube. 2. Interval improved aeration of the left lung. Assessment & Plan - Diagnosis (2) Aspiration pneumonia Qualifiers: Aspiration pneumonia type: due to regurgitated food Lung location: unspecified part of lung Is this a current diagnosis for this admission?: Yes (3) C. difficile diarrhea Is this a current diagnosis for this admission?: Yes (4) Drug overdose Qualifiers: Encounter type: initial encounter Injury intent: intentional self-harm Qualified Code(s): T50.902A - Poisoning by unspecified drugs, medicaments and biological substances, intentional self-harm, initial encounter Is this a current diagnosis for this admission?: Yes (5) Polysubstance abuse Is this a current diagnosis for this admission?: Yes (6) Self-harming behavior Is this a current diagnosis for this admission?: Yes - Time Time Spent with patient: Medications were reevaluated Continue present management switch Augmentin to doxycycline according to Culture of tracheal aspirate Time Spent with patient: 25-34 minutes
[2017-07-01] MEDS: BUSPIRONE HCL 10 MG TABLET PO SCH (18:12)
[2017-07-01] MEDS: QUETIAPINE FUMARATE 25 MG TABLET PO SCH (21:45)
[2017-07-01] MEDS: DIPHENHYDRAMINE HCL 50 MG CAPSULE PO SCH (21:45)
[2017-07-02] MEDS: METRONIDAZOLE 500 MG TABLET PO SCH ×3 (05:31→21:35)
[2017-07-02] MEDS: BUSPIRONE HCL 10 MG TABLET PO SCH ×2 (05:32→17:26)
[2017-07-02] MEDS ORDERED: CLONIDINE 0.1 MG/24 HR PATCH.TDWK TD SCH (10:00)
[2017-07-02] MEDS: FLUOXETINE HCL 20 MG CAPSULE PO SCH (10:52)
[2017-07-02] MEDS: HYDROXYZINE PAMOATE 50 MG CAPSULE PO PRN ×2 (10:52→17:26)
[2017-07-02] MEDS: OLANZAPINE 5 MG TABLET PO SCH ×2 (13:06→17:27)
[2017-07-02] MEDS: LACTOBACILLUS ACIDOPHILUS 250 MG TAB PO SCH ×2 (13:06→17:26)
[2017-07-02] MEDS ORDERED: GABAPENTIN 300 MG CAPSULE PO ONE (13:30)
[2017-07-02 13:57] LABS: HEMATOCRIT 32.8 % (36.0-47.0); HEMOGLOBIN 11.4 g/dL (12.0-15.5); MEAN CORPUSCULAR HEMOGLOBIN 32.8 pg (27.0-33.4); MEAN CORPUSCULAR HGB CONC 34.8 g/dL (32.0-36.0); MEAN CORPUSCULAR VOLUME 94 fl (80-97); PLATELET COUNT 291 10^3/uL (150-450); RED BLOOD COUNT 3.48 10^6/uL (3.72-5.28); RED CELL DISTRIBUTION WIDTH 15.6 % (11.5-14.0); WHITE BLOOD COUNT 7.6 10^3/uL (4.0-10.5)
--- NOTE | 2017-07-02 14:08 | PDOC PROGRESS REPORT ---
Subjective Progress Note for:: 07/02/17 Subjective:: The patient presented to the emergency room with a drug overdose. She was intubated in the ICU U. She has been treated for aspiration pneumonia as well as a Clostridium difficile infection. She is well known to me from her previous hospitalization. Currently she remains under involuntary commitment and she is waiting to be medically cleared so that she can transition to an inpatient psychiatric facility. When I saw the patient today she is resting in the bed. She has been seen by psychiatry this morning. Nursing staff reports that she was quite angry and agitated earlier in the morning. By the time I saw the patient she is quite calm. She did know me from her previous hospitalization. Spent quite some time discussing her current situation with her. It appears that when she was discharged from inpatient psych previously she was supposed to be set up at [facility] for intensive outpatient treatment. She had to walk in for that appointment. She had waited about a week and had her next suicide attempt before she could go in. Did discuss with her at length when she does get released if she is to go to that sort of facility she needs to leave directly from when she is discharged and go directly to their door and get signed up. She is voiced understanding. Overall she denies fever chills. No chest pain, shortness of breath or cough. No nausea, vomiting. She has had no further episodes of diarrhea for the past several days. She is voiding without difficulty. Reason For Visit: OVERDOSE Physical Exam Vital Signs: Temp Pulse Resp BP Pulse Ox 98.5 F 102 H 14 130/73 H 98 07/02/17 11:39 07/02/17 13:07 07/02/17 13:07 07/02/17 11:39 07/02/17 13:07 Intake & Output 07/01/17 07/02/17 07/03/17 06:59 06:59 06:59 Intake Total 2600 1095 Output Total 200 Balance 2600 895 Weight 86.9 kg 87.4 kg General appearance: PRESENT: no acute distress, well-developed, well-nourished Head exam: PRESENT: atraumatic, normocephalic Mouth exam: PRESENT: moist, tongue midline Respiratory exam: PRESENT: clear to auscultation john. ABSENT: rales, rhonchi, wheezes Cardiovascular exam: PRESENT: RRR. ABSENT: diastolic murmur, rubs, systolic murmur GI/Abdominal exam: PRESENT: normal bowel sounds, soft. ABSENT: distended, guarding, mass, organolmegaly, rebound, tenderness Rectal exam: PRESENT: deferred Extremities exam: PRESENT: other - She does complain of right ankle pain from a previous fracture. ABSENT: calf tenderness, clubbing, pedal edema Musculoskeletal exam: PRESENT: ambulatory Neurological exam: PRESENT: alert, awake, oriented to person, oriented to place , oriented to time, oriented to situation, CN II-XII grossly intact. ABSENT: motor sensory deficit Psychiatric exam: PRESENT: appropriate affect, normal mood. ABSENT: homicidal ideation, suicidal ideation Skin exam: PRESENT: dry, intact, warm. ABSENT: cyanosis, rash Results Laboratory Results: 06/30/17 07:32 Impressions: Chest X-Ray 06/27/17 06:00 IMPRESSION: 1. Interval removal of NG tube and endotracheal tube. 2. Interval improved aeration of the left lung. Assessment & Plan - Diagnosis (1) Aspiration pneumonia Qualifiers: Aspiration pneumonia type: due to regurgitated food Lung location: unspecified part of lung Is this a current diagnosis for this admission?: Yes Plan: Secondary to drug overdose. She was placed on mechanical ventilation at the time of admission to protect her airway. Initially she was on antibiotic therapy to cover gram negatives and anaerobes. Her sputum culture however was positive for Enterobacter as well as MRSA. She was placed on p.o. doxycycline yesterday. This covers both organisms. This is day #2 of 7 days of treatment. Currently she is not hypoxic she does not have a cough and she is feeling well. (2) C. difficile diarrhea Is this a current diagnosis for this admission?: Yes Plan: She has had no diarrhea for several days. She will continue p.o. Flagyl. This is day number 6 out of 14 days of treatment. She is no longer considered to be contagious if she is no longer having diarrhea. She will just need to simply complete her course of therapy. (3) Intentional drug overdose Is this a current diagnosis for this admission?: Yes Plan: She currently is under involuntary commitment. She needs significant psychiatric help and would benefit from a long-term program. In any event she is medically stable at this point for transition to an inpatient psychiatric facility if they would allow her to have antibiotics at the facility. She is on oral regimen and is not requiring anything IV. I will get the nursing staff to notify psychiatry that if they can find her a facility that will take her oral antibiotics that she is no longer considered contagious and she is medically stable for transfer. (4) Polysubstance abuse Is this a current diagnosis for this admission?: Yes Plan: I believe the patient self medicates. She needs extensive psychiatric treatment. (5) Suicide attempt Is this a current diagnosis for this admission?: Yes Plan: She is stable from a medical standpoint for transition to an inpatient psychiatric facility if they will take her oral antibiotics. (6) Anemia Is this a current diagnosis for this admission?: Yes Plan: This is a normocytic anemia consistent with chronic disease. (7) Hypokalemia Is this a current diagnosis for this admission?: Yes Plan: Repleted - Time Time Spent with patient: 25-34 minutes - Inpatient Certification Medical Necessity: Need Close Monitoring Due to Risk of Patient Decompensation, Other - Inpatient hospitalization remains necessary as the patient is underInvoluntary commitment orders. At this point I do not consider her contagious and she is now medically stable for transfer to a psychiatric facility if we could find one that would take her oral antibiotics. She just needs to complete a course of therapy. I will get the nursing staff to let the psychiatry service mellitus.
[2017-07-02] MEDS ORDERED: IBUPROFEN 800 MG TABLET PO PRN (14:56)
[2017-07-02] MEDS: BENZTROPINE MESYLATE 1 MG TABLET PO SCH (17:26)
[2017-07-02] MEDS: MAGNESIUM OXIDE 400 MG TABLET PO SCH (17:27)
[2017-07-02] MEDS: DOXYCYCLINE HYCLATE 100 MG TABLET PO SCH ×2 (17:31→21:33)
[2017-07-02] MEDS: PSYLLIUM SEED-SF 5.85 GM PACKET PO SCH (17:32)
[2017-07-02] MEDS: TOPIRAMATE 100 MG TABLET PO SCH (21:33)
[2017-07-02] MEDS: DIPHENHYDRAMINE HCL 50 MG CAPSULE PO SCH (21:33)
[2017-07-02] MEDS: QUETIAPINE FUMARATE 25 MG TABLET PO SCH (21:34)
[2017-07-02] MEDS: GABAPENTIN 300 MG CAPSULE PO SCH (21:35)
[2017-07-03 05:29] LABS: ALANINE AMINOTRANSFERASE 36 U/L (9-52); ALBUMIN 3.1 g/dL (3.5-5.0); ALKALINE PHOSPHATASE 80 U/L (38-126); ANION GAP 8 (5-19); ASPARTATE AMINO TRANSFERASE 14 U/L (14-36); BLOOD UREA NITROGEN 16 mg/dL (7-20); CALCIUM 9.7 mg/dL (8.4-10.2); CARBON DIOXIDE 24 mmol/L (22-30); CHLORIDE 110 mmol/L (98-107); GLUCOSE 89 mg/dL (75-110); MAGNESIUM 1.8 mg/dL (1.6-2.3); SODIUM 141.6 mmol/L (137-145); TOTAL PROTEIN 5.7 g/dL (6.3-8.2)
[2017-07-03 05:43] LABS: BILIRUBIN,TOTAL < 0.1 mg/dL (0.2-1.3)
[2017-07-03] MEDS: BUSPIRONE HCL 10 MG TABLET PO SCH ×2 (06:12→17:07)
[2017-07-03] MEDS: METRONIDAZOLE 500 MG TABLET PO SCH ×3 (06:12→21:52)
[2017-07-03] MEDS: DOXYCYCLINE HYCLATE 100 MG TABLET PO SCH ×2 (08:23→21:52)
[2017-07-03] MEDS: GABAPENTIN 300 MG CAPSULE PO SCH ×2 (08:23→21:52)
[2017-07-03] MEDS: PSYLLIUM SEED-SF 5.85 GM PACKET PO SCH ×2 (09:18→17:03)
[2017-07-03] MEDS: OLANZAPINE 5 MG TABLET PO SCH ×2 (09:24→17:07)
[2017-07-03] MEDS: BENZTROPINE MESYLATE 1 MG TABLET PO SCH (09:24)
[2017-07-03] MEDS: LACTOBACILLUS ACIDOPHILUS 250 MG TAB PO SCH ×2 (09:24→17:07)
[2017-07-03] MEDS: FLUOXETINE HCL 20 MG CAPSULE PO SCH (09:24)
[2017-07-03] MEDS: MAGNESIUM OXIDE 400 MG TABLET PO SCH (11:20)
[2017-07-03] MEDS: HYDROXYZINE PAMOATE 50 MG CAPSULE PO PRN (11:20)
--- NOTE | 2017-07-03 11:39 | PSYCHOLOGICAL NOTE ---
Psych Note - Psych Note Psych Note: Reason for consult: Intentional overdose, continued IVC Contacts given: None given Patient is a 32 year old female who is on the 2nd floor in Room 216 for an intentional overdose. Patient was placed on IVC (06/26/16); IVC was renewed . Inpatient psychiatric hospitals are requesting verification of a negative c.diff and DRAKE test. Once patient is cleared from c. diff and DRAKE, behavioral health team will continue seeking placement. Medication Recommendations from contracted [facility] contracted psychiatrist; MD Jessie: Zyprexa 5mg twice daily Prozac 20mg Daily Cogentin 1 mg Daily Seroquel 50 mg nightly Buspar 10mg twice daily Clonidine 0.1 patch/every 3 days Vistaril 50 mg every 6 hours as needed Diagnosis: 1. 311 (F32.9) Unspecified Depressive Disorder 2. 309.81 (F43.10) Post traumatic Stress Disorder, by patient report 2. 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 Patient admits to intentional overdose in an attempt to kill herself. Patient has poor insight , judgment, and impulse control. At this time, it appears the patient's substance abuse is secondary to her psychiatric instability (i.e. she uses illegal substances to self medicate). Inpatient psychiatric placement will be sought once medically cleared. Dr. Galvan was consulted in the care and management of this patient; attending physician in agreement with recommendations and disposition.
[2017-07-03] MEDS: BUTALB/ACETAMINOPHEN/CAFFEINE 1 TAB EACH PO PRN ×2 (13:51→21:52)
--- NOTE | 2017-07-03 17:43 | PDOC PROGRESS REPORT ---
Subjective Progress Note for:: 07/03/17 Subjective:: Patient seen on rounds. She is resting in the chair watching tv. She remains under IVC due to intentional suicide attempt. She is also being treated for cdiff. She denies any diarrhea. She denies any nausea. She denies any other complaints at the present time. She is awaiting bed for inpatient psych. Reason For Visit: OVERDOSE Physical Exam Vital Signs: Temp Pulse Resp BP Pulse Ox 97.9 F 82 18 119/73 99 07/03/17 08:00 07/03/17 08:00 07/03/17 08:00 07/03/17 08:00 07/03/17 08:00 Intake & Output 07/02/17 07/03/17 07/04/17 06:59 06:59 06:59 Intake Total 1095 1370 Output Total 200 1000 Balance 895 370 Weight 87.4 kg 87.4 kg General appearance: PRESENT: no acute distress, obese, well-developed, well- nourished Head exam: PRESENT: atraumatic, normocephalic Eye exam: PRESENT: conjunctival injection Ear exam: PRESENT: normal external ear exam Mouth exam: PRESENT: moist, tongue midline Neck exam: ABSENT: carotid bruit, JVD, lymphadenopathy, thyromegaly Respiratory exam: PRESENT: clear to auscultation john. ABSENT: rales, rhonchi, wheezes Cardiovascular exam: PRESENT: RRR. ABSENT: diastolic murmur, rubs, systolic murmur Pulses: PRESENT: normal dorsalis pedis pul Vascular exam: PRESENT: normal capillary refill GI/Abdominal exam: PRESENT: normal bowel sounds, soft. ABSENT: distended, guarding, mass, organolmegaly, rebound, tenderness Rectal exam: PRESENT: deferred Extremities exam: PRESENT: full ROM. ABSENT: calf tenderness, clubbing, pedal edema Neurological exam: PRESENT: alert, awake, oriented to person, oriented to place , oriented to time, oriented to situation, CN II-XII grossly intact. ABSENT: motor sensory deficit Psychiatric exam: PRESENT: appropriate affect, normal mood. ABSENT: homicidal ideation, suicidal ideation Skin exam: PRESENT: dry, intact, warm. ABSENT: cyanosis, rash Results Laboratory Results: 07/02/17 13:12 07/03/17 04:00 02/13/18 02/14/18 13:12 04:00 WBC 7.6 RBC 3.48 L Hgb 11.4 L Hct 32.8 L MCV 94 MCH 32.8 MCHC 34.8 RDW 15.6 H Plt Count 291 Sodium 141.6 Potassium 4.0 Chloride 110 H Carbon Dioxide 24 Anion Gap 8 BUN 16 Creatinine 0.83 Est GFR ( Amer) > 60 Est GFR (Non-Af Amer) > 60 Glucose 89 Calcium 9.7 Magnesium 1.8 Total Bilirubin < 0.1 L AST 14 ALT 36 Alkaline Phosphatase 80 Total Protein 5.7 L Albumin 3.1 L Impressions: Chest X-Ray 06/27/17 06:00 IMPRESSION: 1. Interval removal of NG tube and endotracheal tube. 2. Interval improved aeration of the left lung. Assessment & Plan - Diagnosis (1) C. difficile diarrhea Is this a current diagnosis for this admission?: Yes Plan: She has 4 more days of flagyl. She is no longer having diarrhea (2) Drug overdose Qualifiers: Encounter type: initial encounter Injury intent: intentional self-harm Qualified Code(s): T50.902A - Poisoning by unspecified drugs, medicaments and biological substances, intentional self-harm, initial encounter Is this a current diagnosis for this admission?: Yes Plan: Awaiting psych inpatient placement (3) Intentional drug overdose Is this a current diagnosis for this admission?: Yes Plan: She was just discharged from an inpatient facility less than one week ago (4) Polysubstance abuse Is this a current diagnosis for this admission?: Yes (5) Self-harming behavior Is this a current diagnosis for this admission?: Yes Plan: As above (6) Suicide attempt Is this a current diagnosis for this admission?: Yes Plan: As above - Time Time Spent with patient: 25-34 minutes Medications reviewed and adjusted accordingly: Yes Anticipated discharge: Other - Psych inpatient
[2017-07-03] MEDS: DIPHENHYDRAMINE HCL 50 MG CAPSULE PO SCH (21:52)
[2017-07-03] MEDS: QUETIAPINE FUMARATE 25 MG TABLET PO SCH (21:52)
[2017-07-03] MEDS: TOPIRAMATE 100 MG TABLET PO SCH (21:54)
[2017-07-04] MEDS: BUSPIRONE HCL 10 MG TABLET PO SCH ×2 (06:01→18:09)
[2017-07-04] MEDS: GABAPENTIN 300 MG CAPSULE PO SCH ×2 (07:54→21:24)
[2017-07-04] MEDS: DOXYCYCLINE HYCLATE 100 MG TABLET PO SCH ×2 (07:54→21:23)
[2017-07-04] MEDS: BUTALB/ACETAMINOPHEN/CAFFEINE 1 TAB EACH PO PRN ×2 (08:36→18:13)
[2017-07-04] MEDS ORDERED: MAG HYDROX/AL HYDROX/SIMETH SUSP 30 ML UDCUP PO PRN (09:00)
[2017-07-04] MEDS ORDERED: ACETAMINOPHEN 325 MG TABLET NG PRN (09:00)
[2017-07-04] MEDS ORDERED: ONDANSETRON HCL INJ/PF 4 MG/2 ML SDV IV PRN (09:00)
[2017-07-04] MEDS: PSYLLIUM SEED-SF 5.85 GM PACKET PO SCH ×2 (09:38→18:03)
[2017-07-04] MEDS: FLUOXETINE HCL 20 MG CAPSULE PO SCH (09:41)
[2017-07-04] MEDS: OLANZAPINE 5 MG TABLET PO SCH ×2 (09:41→18:10)
[2017-07-04] MEDS: BENZTROPINE MESYLATE 1 MG TABLET PO SCH (09:42)
[2017-07-04] MEDS: LACTOBACILLUS ACIDOPHILUS 250 MG TAB PO SCH ×2 (09:42→18:10)
--- NOTE | 2017-07-04 09:49 | PSYCHOLOGICAL NOTE ---
Psych Note - Psych Note Psych Note: Reason for consult: Intentional overdose, continued IVC Contacts given: None given Patient is a 32 year old female who is on the 2nd floor in Room 216 for an intentional overdose. Patient was placed on IVC (06/26/16); IVC was renewed . Inpatient psychiatric hospitals are requesting verification of a negative [facility] test. Patient is noted to have a negative test for C. Diff. Once patient is cleared from [facility], behavioral health team will continue seeking placement. Medication Recommendations from contracted [facility] contracted psychiatrist; MD Jessie: Zyprexa 5mg twice daily Prozac 20mg Daily Cogentin 1 mg Daily Seroquel 50 mg nightly Buspar 10mg twice daily Clonidine 0.1 patch/every 3 days Vistaril 50 mg every 6 hours as needed Diagnosis: 1. 311 (F32.9) Unspecified Depressive Disorder 2. 309.81 (F43.10) Post traumatic Stress Disorder, by patient report 2. 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 Patient admits to intentional overdose in an attempt to kill herself. Patient has poor insight , judgment, and impulse control. At this time, it appears the patient's substance abuse is secondary to her psychiatric instability (i.e. she uses illegal substances to self medicate). Inpatient psychiatric placement will be sought once medically cleared. Dr. Galvan was consulted in the care and management of this patient; attending physician in agreement with recommendations and disposition.
[2017-07-04] MEDS: MAGNESIUM OXIDE 400 MG TABLET PO SCH (11:47)
[2017-07-04] MEDS: HYDROXYZINE PAMOATE 50 MG CAPSULE PO PRN (13:02)
[2017-07-04] MEDS ORDERED: LORAZEPAM INJ 2 MG/1 ML VIAL IV ONE (17:05)
--- NOTE | 2017-07-04 18:09 | PDOC PROGRESS REPORT ---
Subjective Progress Note for:: 07/04/17 Subjective:: The patient is resting in her chair. She is extremely anxious today and tearful. Her behavior is actually acceptable and she is very calmly explaining that she feels extremely anxious. Psychiatry has cleared her from her Clostridium difficile but state that they would like her cleared for MRSA prior to discharge. We have performed a nasal swab and the results are pending. I did speak to Dr. Faria who is an infectious disease specialist in [place] at [facility]. He stated that if the patient was not febrile and did not have an active infection that she could just simply be colonized by MRSA. He stated that lots of people in the community are colonized with MRSA and it does not mean that they are actively infected. The patient has been afebrile. She does not have a cough. She has no signs of infection. I do not believe that she is contagious at this point. I do believe she is stable for transition to an inpatient psychiatric facility. We will await the results of her MRSA screen. I am empirically starting her on Bactroban to the nares but she does not have any sort of active infection at this point. Reason For Visit: OVERDOSE Physical Exam Vital Signs: Temp Pulse Resp BP Pulse Ox 98.2 F 78 12 102/57 L 100 07/04/17 11:35 07/04/17 14:44 07/04/17 14:44 07/04/17 11:35 07/04/17 14:44 Intake & Output 07/03/17 07/04/17 07/05/17 06:59 06:59 06:59 Intake Total 1370 2500 422 Output Total 1000 900 800 Balance 370 1600 -378 Weight 87.4 kg 87.4 kg General appearance: PRESENT: other - She is somewhat anxious and tearful today. Head exam: PRESENT: atraumatic, normocephalic Mouth exam: PRESENT: moist, tongue midline Respiratory exam: PRESENT: clear to auscultation john. ABSENT: rales, rhonchi, wheezes Cardiovascular exam: PRESENT: RRR. ABSENT: diastolic murmur, rubs, systolic murmur GI/Abdominal exam: PRESENT: normal bowel sounds, soft. ABSENT: distended, guarding, mass, organolmegaly, rebound, tenderness Extremities exam: PRESENT: full ROM. ABSENT: calf tenderness, clubbing, pedal edema Neurological exam: PRESENT: alert, awake, oriented to person, oriented to place , oriented to time, oriented to situation, CN II-XII grossly intact. ABSENT: motor sensory deficit Psychiatric exam: PRESENT: agitated, anxious, appropriate affect, other - Even though she is quite anxious and tearful her behavior is more appropriate today. Skin exam: PRESENT: dry, intact, warm. ABSENT: cyanosis, rash Results Laboratory Results: 07/02/17 13:12 07/03/17 04:00 Impressions: Chest X-Ray 06/27/17 06:00 IMPRESSION: 1. Interval removal of NG tube and endotracheal tube. 2. Interval improved aeration of the left lung. Assessment & Plan - Diagnosis (1) Aspiration pneumonia Qualifiers: Aspiration pneumonia type: due to regurgitated food Lung location: unspecified part of lung Is this a current diagnosis for this admission?: Yes Plan: Secondary to drug overdose. She was placed on mechanical ventilation at the time of admission to protect her airway. Initially she was on antibiotic therapy to cover gram negatives and anaerobes. Her sputum culture however was positive for Enterobacter as well as MRSA. She was placed on p.o. doxycycline yesterday. This covers both organisms. This is day #4 of treatment. I do not believe that she had an active MRSA infection. We will keep her on treatment while she is here in the hospital but she will require no further treatment when she is discharged. Currently she is not hypoxic she does not have a cough and she is feeling well. (2) C. difficile diarrhea Is this a current diagnosis for this admission?: Yes Plan: Resolved (3) Intentional drug overdose Is this a current diagnosis for this admission?: Yes Plan: She currently is under involuntary commitment. She needs significant psychiatric help and would benefit from a long-term program. In any event she is medically stable at this point for transition to an inpatient psychiatric facility. (4) Polysubstance abuse Is this a current diagnosis for this admission?: Yes Plan: I believe the patient self medicates. She needs extensive psychiatric treatment. (5) Suicide attempt Is this a current diagnosis for this admission?: Yes Plan: She is stable from a medical standpoint for transition to an inpatient psychiatric facility (6) Anemia Is this a current diagnosis for this admission?: Yes Plan: This is a normocytic anemia consistent with chronic disease. (7) Hypokalemia Is this a current diagnosis for this admission?: Yes Plan: Repleted - Time Time Spent with patient: 15-24 minutes - Inpatient Certification Medical Necessity: Other - Inpatient hospitalization remains necessary for disposition. The patient is stable medically for transition to an inpatient psychiatric facility. She has no evidence of active infection at this point and will require no further antibiotic therapy at discharge.
[2017-07-04] MEDS ORDERED: LORAZEPAM 1 MG TABLET PO ONE (18:15)
[2017-07-04] MEDS: MUPIROCIN 2% OINTMENT 22 GM TP SCH (18:38)
[2017-07-04] MEDS: QUETIAPINE FUMARATE 25 MG TABLET PO SCH (21:22)
[2017-07-04] MEDS: TOPIRAMATE 100 MG TABLET PO SCH (21:23)
[2017-07-04] MEDS: DIPHENHYDRAMINE HCL 50 MG CAPSULE PO SCH (21:24)
[2017-07-05] MEDS: BUSPIRONE HCL 10 MG TABLET PO SCH ×2 (05:10→19:43)
[2017-07-05 07:49] LABS: ABSOLUTE BASOPHILS # (AUTO) 0.1 10^3/uL (0.0-0.2); ABSOLUTE EOSINOPHILS # (AUTO) 0.2 10^3/uL (0.0-0.6); ABSOLUTE LYMPHOCYTES (AUTO) 2.6 10^3/uL (0.5-4.7); ABSOLUTE MONOCYTES (AUTO) 0.6 10^3/uL (0.1-1.4); ABSOLUTE NEUT (AUTO) 2.8 10^3/uL (1.7-8.2); BASOPHILS % (AUTO) 1.7 % (0-2); EOSINOPHILS % (AUTO) 2.7 % (0-6); HEMATOCRIT 35.7 % (36.0-47.0); HEMOGLOBIN 12.1 g/dL (12.0-15.5); LYMPHOCYTES % (AUTO) 41.4 % (13-45); MEAN CORPUSCULAR HEMOGLOBIN 32.5 pg (27.0-33.4); MEAN CORPUSCULAR HGB CONC 33.9 g/dL (32.0-36.0); MEAN CORPUSCULAR VOLUME 96 fl (80-97); MONOCYTES % (AUTO) 9.7 % (3-13); PLATELET COUNT 244 10^3/uL (150-450); RED BLOOD COUNT 3.72 10^6/uL (3.72-5.28); RED CELL DISTRIBUTION WIDTH 15.4 % (11.5-14.0); SEGMENTED NEUTROPHILS % (AUTO) 44.5 % (42-78); TOTAL CELLS COUNTED % (AUTO) 100 %; WHITE BLOOD COUNT 6.2 10^3/uL (4.0-10.5)
[2017-07-05 08:14] LABS: ANION GAP 12 (5-19); BLOOD UREA NITROGEN 11 mg/dL (7-20); CALCIUM 9.3 mg/dL (8.4-10.2); CARBON DIOXIDE 17 mmol/L (22-30); CHLORIDE 111 mmol/L (98-107); GLUCOSE 120 mg/dL (75-110); POTASSIUM 4.2 mmol/L (3.6-5.0); SODIUM 139.5 mmol/L (137-145)
[2017-07-05] MEDS: GABAPENTIN 300 MG CAPSULE PO SCH ×2 (08:22→21:00)
[2017-07-05] MEDS: DOXYCYCLINE HYCLATE 100 MG TABLET PO SCH ×2 (08:22→20:16)
[2017-07-05] MEDS: BUTALB/ACETAMINOPHEN/CAFFEINE 1 TAB EACH PO PRN (08:23)
[2017-07-05] MEDS: BENZTROPINE MESYLATE 1 MG TABLET PO SCH (09:29)
[2017-07-05] MEDS: FLUOXETINE HCL 20 MG CAPSULE PO SCH (09:30)
[2017-07-05] MEDS: LACTOBACILLUS ACIDOPHILUS 250 MG TAB PO SCH ×2 (09:31→19:42)
[2017-07-05] MEDS: OLANZAPINE 5 MG TABLET PO SCH ×2 (09:32→19:43)
[2017-07-05] MEDS: MUPIROCIN 2% OINTMENT 22 GM TP SCH ×2 (09:35→19:46)
[2017-07-05] MEDS: PSYLLIUM SEED-SF 5.85 GM PACKET PO SCH ×2 (09:37→19:43)
[2017-07-05] MEDS: MAGNESIUM OXIDE 400 MG TABLET PO SCH (13:11)
--- NOTE | 2017-07-05 14:26 | PSYCHOLOGICAL NOTE ---
Psych Note - Psych Note Psych Note: Reason for consult: Intentional overdose, continued IVC Contacts given: None given Patient is a 32 year old female who is on the 2nd floor in Room 216 for an intentional overdose. Patient was placed on IVC (06/26/16); IVC was renewed . Patient is noted to have a negative test for C. Diff and [facility], behavioral health team will be seeking placement. Medication Recommendations from contracted [facility] contracted psychiatrist; MD Jessie: Zyprexa 5mg twice daily Prozac 20mg Daily Cogentin 1 mg Daily Seroquel 50 mg nightly Buspar 10mg twice daily Clonidine 0.1 patch/every 3 days Vistaril 50 mg every 6 hours as needed Diagnosis: 1. 311 (F32.9) Unspecified Depressive Disorder 2. 309.81 (F43.10) Post traumatic Stress Disorder, by patient report 2. 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 Patient admits to intentional overdose in an attempt to kill herself. Patient has poor insight , judgment, and impulse control. At this time, it appears the patient's substance abuse is secondary to her psychiatric instability (i.e. she uses illegal substances to self medicate). Inpatient psychiatric placement will be sought once medically cleared. Dr. Galvan was consulted in the care and management of this patient; attending physician in agreement with recommendations and disposition.
--- NOTE | 2017-07-05 15:37 | PDOC PROGRESS REPORT ---
Subjective Progress Note for:: 07/05/17 Subjective:: The patient is resting in a chair. She is quite frustrated because she wants to go ahead and get the process started to get her out of the hospital and into inpatient psychiatric treatment. She states that the longer she stays in the hospital the more she wants to kill herself. She was a little bit tearful. I did call psychiatry and they have referred her out as she is now been cleared to be discharged from her Clostridium difficile infection and MRSA infection. Hopefully she will get a bed in the very near future. I did spend quite some time discussing this with her and she felt a little better by the time I left the room. Overall she denies fever chills. No chest pain, shortness of breath or cough. No nausea, vomiting or diarrhea. No dysuria, frequency or hematuria Reason For Visit: OVERDOSE Physical Exam Vital Signs: Temp Pulse Resp BP Pulse Ox 98.8 F 81 16 104/62 97 07/05/17 08:11 07/05/17 08:11 07/05/17 08:11 07/05/17 08:11 07/05/17 08:11 Intake & Output 07/04/17 07/05/17 07/06/17 06:59 06:59 06:59 Intake Total 2500 1142 680 Output Total 900 1750 Balance 1600 -608 680 Weight 87.4 kg 87.4 kg General appearance: PRESENT: other Mouth exam: PRESENT: moist, tongue midline Respiratory exam: PRESENT: clear to auscultation john. ABSENT: rales, rhonchi, wheezes Cardiovascular exam: PRESENT: RRR. ABSENT: diastolic murmur, rubs, systolic murmur GI/Abdominal exam: PRESENT: normal bowel sounds, soft. ABSENT: distended, guarding, mass, organolmegaly, rebound, tenderness Rectal exam: PRESENT: deferred Musculoskeletal exam: PRESENT: ambulatory Neurological exam: PRESENT: alert, awake, oriented to person, oriented to place , oriented to time, oriented to situation, CN II-XII grossly intact. ABSENT: motor sensory deficit Psychiatric exam: PRESENT: agitated, anxious, suicidal ideation, other Focused psych exam: PRESENT: restlessness Skin exam: PRESENT: dry, intact, warm. ABSENT: cyanosis, rash Results Laboratory Results: 07/05/17 06:50 07/05/17 06:50 07/05/17 07/05/17 06:50 06:50 WBC 6.2 RBC 3.72 Hgb 12.1 Hct 35.7 L MCV 96 MCH 32.5 MCHC 33.9 RDW 15.4 H Plt Count 244 Seg Neutrophils % 44.5 Lymphocytes % 41.4 Monocytes % 9.7 Eosinophils % 2.7 Basophils % 1.7 Absolute Neutrophils 2.8 Absolute Lymphocytes 2.6 Absolute Monocytes 0.6 Absolute Eosinophils 0.2 Absolute Basophils 0.1 Sodium 139.5 Potassium 4.2 Chloride 111 H Carbon Dioxide 17 L Anion Gap 12 BUN 11 Creatinine 0.70 Est GFR ( Amer) > 60 Est GFR (Non-Af Amer) > 60 Glucose 120 H Calcium 9.3 Magnesium 2.0 07/04/17 13:00 Nasophary ([facility] Only) MRSA Surveillance Culture - Final NO MRSA RECOVERED Impressions: Chest X-Ray 06/27/17 06:00 IMPRESSION: 1. Interval removal of NG tube and endotracheal tube. 2. Interval improved aeration of the left lung. Assessment & Plan - Diagnosis (1) Aspiration pneumonia Qualifiers: Aspiration pneumonia type: due to regurgitated food Lung location: unspecified part of lung Is this a current diagnosis for this admission?: Yes Plan: Secondary to drug overdose. She was placed on mechanical ventilation at the time of admission to protect her airway. Initially she was on antibiotic therapy to cover gram negatives and anaerobes. Her sputum culture however was positive for Enterobacter as well as MRSA. She has almost completed a course of therapy. She will continue p.o. doxycycline until she leaves the hospital. (2) C. difficile diarrhea Is this a current diagnosis for this admission?: Yes Plan: Resolved (3) Intentional drug overdose Is this a current diagnosis for this admission?: Yes Plan: She currently is under involuntary commitment. She needs significant psychiatric help and would benefit from a long-term program. She is medically stable for transition to an inpatient psychiatric facility (4) Polysubstance abuse Is this a current diagnosis for this admission?: Yes Plan: I believe the patient self medicates. She needs extensive psychiatric treatment. (5) Suicide attempt Is this a current diagnosis for this admission?: Yes Plan: She is stable from a medical standpoint for transition to an inpatient psychiatric facility. She remains suicidal and is voicing the fact that she wishes to harm her self. (6) Anemia Is this a current diagnosis for this admission?: Yes Plan: This is a normocytic anemia consistent with chronic disease. (7) Hypokalemia Is this a current diagnosis for this admission?: Yes Plan: Repleted - Time Time Spent with patient: 15-24 minutes - Inpatient Certification Medical Necessity: Other - Inpatient hospitalization remains necessary for disposition. Patient has been cleared medically for inpatient psychiatric treatment. She is under involuntary commitment orders and she will remain in the hospital until she has a bed.
[2017-07-05] MEDS: HYDROXYZINE PAMOATE 50 MG CAPSULE PO PRN (16:36)
[2017-07-05] MEDS: DIPHENHYDRAMINE HCL 50 MG CAPSULE PO SCH (21:00)
[2017-07-05] MEDS: TOPIRAMATE 100 MG TABLET PO SCH (21:00)
[2017-07-05] MEDS: QUETIAPINE FUMARATE 25 MG TABLET PO SCH (21:00)
[2017-07-06] MEDS: BUSPIRONE HCL 10 MG TABLET PO SCH (05:58)
--- NOTE | 2017-07-06 08:17 | PDOC TRANSFER SUMMARY ---
General Admission Date/PCP: 06/25/17 01:19 Resuscitation Status: Full Code - Transfer Diagnosis (1) C. difficile diarrhea Is this a current diagnosis for this admission?: Yes Diagnosis Summary: Completed treatment for c diff. She is no longer having diarrhea (2) Drug overdose Is this a current diagnosis for this admission?: Yes Diagnosis Summary: She is IVCd needs inpatient psych treatment (3) Intentional drug overdose Is this a current diagnosis for this admission?: Yes Diagnosis Summary: As above (4) Polysubstance abuse Is this a current diagnosis for this admission?: Yes Diagnosis Summary: Counseled. Inpatient psych treatment (5) Self-harming behavior Is this a current diagnosis for this admission?: Yes - Transfer Medications Home Medications: Gabapentin [Neurontin] 800 mg PO Q8 06/25/17 Olanzapine [Zyprexa] 10 mg PO BID 06/25/17 Transfer Medications: Current Medications Acetaminophen (Tylenol 325 Mg Tablet) 650 mg NG Q6HP PRN PRN Reason: MILD PAIN OR TEMP > 101 Stop: 07/25/17 06:32 Acetaminophen/Butalbital/Caffeine (Fioricet (50-325-40 Mg) Tablet) 2 tab PO Q6HP PRN PRN Reason: FOR HEADACHE Stop: 08/02/17 17:39 Last Admin: 07/05/17 08:23 Dose: 2 tab Al Hydrox/Mg Hydrox/Simethicone (Maalox Plus Susp 30 Udcup) 30 ml PO Q6HP PRN PRN Reason: HEARTBURN Stop: 07/25/17 01:14 Albuterol/Ipratropium (Duoneb 3 Ml Ampul) 3 ml NEB RTQ6HP PRN PRN Reason: SHORTNESS OF BREATH Stop: 07/31/17 08:24 Last Admin: 07/02/17 05:30 Dose: 3 ml Benztropine Mesylate (Cogentin 1 Mg Tablet) 1 mg PO DAILY TOI Stop: 07/31/17 09:59 Last Admin: 07/05/17 09:29 Dose: 1 mg Buspirone HCl (Buspar 10 Mg Tablet) 10 mg PO Q12A TOI Stop: 07/31/17 17:59 Last Admin: 07/06/17 05:58 Dose: 10 mg Clonidine HCl (Catapres-Tts 1 (0.1 Mg/24 Hr) Transderm Patch) 1 each TD Tu@ 1000 TOI Stop: 08/01/17 09:59 Last Admin: 07/02/17 17:27 Dose: 1 each Diphenhydramine HCl (Benadryl 50 Mg Capsule) 50 mg PO QHS [facility] Stop: 07/30/17 10:29 Last Admin: 07/05/17 21:00 Dose: 50 mg Doxycycline Hyclate (Vibramycin 100 Mg Tablet) 100 mg PO Q12@0800,2000 [facility] Stop: 07/08/17 07:59 Last Admin: 07/05/17 20:16 Dose: 100 mg Fluoxetine HCl (Prozac 20 Mg Capsule) 20 mg PO DAILY [facility] Stop: 07/31/17 09:59 Last Admin: 07/05/17 09:30 Dose: 20 mg Gabapentin (Neurontin 300 Mg Capsule) 300 mg PO QAM [facility] Stop: 08/02/17 07:59 Last Admin: 07/05/17 08:22 Dose: 300 mg Gabapentin (Neurontin 300 Mg Capsule) 600 mg PO QHS [facility] Stop: 08/01/17 21:59 Last Admin: 07/05/17 21:00 Dose: 600 mg Hydroxyzine Pamoate (Vistaril 50 Mg Capsule) 50 mg PO Q6HP PRN PRN Reason: AGITATION Stop: 07/31/17 09:37 Last Admin: 07/05/17 16:36 Dose: 50 mg Ibuprofen (Motrin 800 Mg Tablet) 800 mg PO Q12HP PRN PRN Reason: FOR PAIN Stop: 08/01/17 14:55 Influenza Virus Vaccine Quadrival (Fluzone Adlt Quad [id number] Vac 0.5 Ml Syr) 0.5 ml IM .DISCHARGE PRN PRN Reason: THIS MED IS NOT "PRN" Stop: 07/26/17 00:27 Last Admin: 07/05/17 16:38 Dose: 0.5 ml Lactobacillus Acidophilus (Bacid 250 Mg Tablet) 500 mg PO BID [facility] Stop: 07/27/17 17:59 Last Admin: 07/05/17 19:42 Dose: 500 mg Magnesium Oxide (Mag-Ox 400 Mg Tablet) 400 mg PO DAILY@1200 [facility] Stop: 07/30/17 11:59 Last Admin: 07/05/17 13:11 Dose: 400 mg Mupirocin (Bactroban 2% Ointment 22 Gm) 1 applic TP BID [facility] Stop: 08/03/17 17:59 Last Admin: 07/05/17 19:46 Dose: 1 applic Olanzapine (Zyprexa 5 Mg Tablet) 5 mg PO BID [facility] Stop: 07/31/17 09:59 Last Admin: 07/05/17 19:43 Dose: 5 mg Ondansetron HCl (Zofran Inj/Pf 4 Mg/2 Ml Sdv) 4 mg IV Q8HP PRN PRN Reason: FOR NAUSEA/VOMITING Stop: 07/25/17 01:14 Psyllium Hydrophilic Mucilloid (Metamucil-Sf Powder 5.85 Gm Packet) 1 packet PO BID TOI Stop: 07/27/17 17:59 Last Admin: 07/05/17 19:43 Dose: 1 packet Quetiapine Fumarate (Seroquel 25 Mg Tablet) 50 mg PO QHS TOI Stop: 07/31/17 21:59 Last Admin: 07/05/17 21:00 Dose: 50 mg Topiramate (Topamax 100 Mg Tablet) 100 mg PO QHS [facility] Stop: 08/01/17 21:59 Last Admin: 07/05/17 21:00 Dose: 100 mg - Allergies Allergies/Adverse Reactions: ketorolac [From Toradol] Allergy (Verified 06/25/17 03:17) sumatriptan [From Imitrex] Allergy (Verified 06/25/17 03:17) - Diet/Activity Discharge Diet: Regular Discharge Activity: Activity As Tolerated Hospital Course Hospital Course: HILARIO LUNA is a 32 year old female with a past medical history of decompensated bipolar depression, suicide attempt by medication. Patient found by landlord unresponsive with empty prescription bottle of gabapentin and suspected to have taken trazodone. The patient herself was admitted to inpatient psychiatric care June 10. The patient's other roommate was hospitalized requiring intubation 2 hours prior. In the emergency room she is suspected to have aspirated, unable to protect her airway she is intubated and referred to the hospitalist for admission. Initial workup is notable superficial left wrist lacerations and labs positive cocaine and marijuana. She was weaned and extubated the following day by pulmonary. She was IVCd by attending provider. Psych was consulted, Dr Galvan saw the patient in consult. She made medication adjustments and her team saw the patient daily in consult. She was treated for aspiration pneumonia with MRSA for a total course. Her cough has resolved. She was also found to have cdifficile diarrhea. She was treated with 10 day course of flagyl. She is having no further diarrhea. She is ready for transfer to inpatient psych facility. Physical Exam Vital Signs: Temp Pulse Resp BP Pulse Ox 97.9 F 78 16 103/63 98 07/05/17 23:38 07/05/17 23:38 07/05/17 23:38 07/05/17 23:38 07/05/17 23:38 Intake & Output 07/05/17 07/06/17 07/07/17 06:59 06:59 06:59 Intake Total 1142 2220 Output Total 1750 Balance -608 2220 Weight 87.4 kg 91.8 kg General appearance: PRESENT: no acute distress, obese, well-developed, well- nourished Head exam: PRESENT: atraumatic, normocephalic Eye exam: PRESENT: conjunctiva pink, EOMI, PERRLA. ABSENT: scleral icterus Ear exam: PRESENT: normal external ear exam Mouth exam: PRESENT: moist, tongue midline Neck exam: ABSENT: carotid bruit, JVD, lymphadenopathy, thyromegaly Cardiovascular exam: PRESENT: RRR. ABSENT: diastolic murmur, rubs, systolic murmur Pulses: PRESENT: normal dorsalis pedis pul Vascular exam: PRESENT: normal capillary refill GI/Abdominal exam: PRESENT: normal bowel sounds, soft. ABSENT: distended, guarding, mass, organolmegaly, rebound, tenderness Rectal exam: PRESENT: deferred Extremities exam: PRESENT: full ROM. ABSENT: calf tenderness, clubbing, pedal edema Musculoskeletal exam: PRESENT: ambulatory Neurological exam: PRESENT: alert, awake, oriented to person, oriented to place , oriented to time, oriented to situation, CN II-XII grossly intact. ABSENT: motor sensory deficit Psychiatric exam: PRESENT: depressed, flat affect, suicidal ideation Focused psych exam: PRESENT: restlessness Skin exam: PRESENT: dry, intact, warm. ABSENT: cyanosis, rash Results Laboratory Results: 07/05/17 06:50 07/05/17 06:50 07/05/17 06:50 Sodium 139.5 Potassium 4.2 Chloride 111 H Carbon Dioxide 17 L Anion Gap 12 BUN 11 Creatinine 0.70 Est GFR ( Amer) > 60 Est GFR (Non-Af Amer) > 60 Glucose 120 H Calcium 9.3 Magnesium 2.0 07/04/17 13:00 Nasophary ([facility] Only) MRSA Surveillance Culture - Final NO MRSA RECOVERED Impressions: Chest X-Ray 06/27/17 06:00 IMPRESSION: 1. Interval removal of NG tube and endotracheal tube. 2. Interval improved aeration of the left lung. Plan Discharge Plan: [facility]patient [facility] Time Spent: Less than 30 Minutes
[2017-07-06] MEDS: DOXYCYCLINE HYCLATE 100 MG TABLET PO SCH (08:23)
[2017-07-06] MEDS: GABAPENTIN 300 MG CAPSULE PO SCH (08:24)
[2017-07-06] MEDS: HYDROXYZINE PAMOATE 50 MG CAPSULE PO PRN (08:45)
[2017-07-06 08:54] VITALS: BP 100/61
[2017-07-06] MEDS: LACTOBACILLUS ACIDOPHILUS 250 MG TAB PO SCH (09:03)
[2017-07-06] MEDS: OLANZAPINE 5 MG TABLET PO SCH (09:04)
[2017-07-06] MEDS: BENZTROPINE MESYLATE 1 MG TABLET PO SCH (09:04)
[2017-07-06] MEDS: PSYLLIUM SEED-SF 5.85 GM PACKET PO SCH (09:04)
[2017-07-06] MEDS: FLUOXETINE HCL 20 MG CAPSULE PO SCH (09:04)
[2017-07-06] MEDS: MUPIROCIN 2% OINTMENT 22 GM TP SCH (09:08)
== END 2017-07-06 10:17 | DRG 917 ==
LOC: ER 23:05 → EH 06-25 01:19 → ICU 06-25 09:34 → 2S 06-27 12:50 → 4N 07-01 21:49
PROVIDERS: ADMIT Internal Medicine; ATTEND Internal Medicine
PROC: 0BH17EZ Insertion of Endotracheal Airway into Trachea, Via Natural or Artificial Opening (ICD-10-PCS; principal; 2017-06-25)
PROC: 5A1945Z Respiratory Ventilation, 24-96 Consecutive Hours (ICD-10-PCS; 2017-06-25)
PROC: 3E0234Z Introduction of Serum, Toxoid and Vaccine into Muscle, Percutaneous Approach (ICD-10-PCS; 2017-07-05)
DX: T42.6X2A Poisoning by other antiepileptic and sedative-hypnotic drugs, intentional self-harm, initial encounter (principal); J69.0 Pneumonitis due to inhalation of food and vomit; J96.00 Acute respiratory failure, unspecified whether with hypoxia or hypercapnia; J44.1 Chronic obstructive pulmonary disease with (acute) exacerbation; A04.72 Enterocolitis due to Clostridium difficile, not specified as recurrent; T43.212A Poisoning by selective serotonin and norepinephrine reuptake inhibitors, intentional self-harm, initial encounter; Y92.009 Unspecified place in unspecified non-institutional (private) residence as the place of occurrence of the external cause; S61.512A Laceration without foreign body of left wrist, initial encounter; X58.XXXA Exposure to other specified factors, initial encounter; F31.9 Bipolar disorder, unspecified; F14.10 Cocaine abuse, uncomplicated; F12.10 Cannabis abuse, uncomplicated; E87.6 Hypokalemia; F41.9 Anxiety disorder, unspecified; B96.89 Other specified bacterial agents as the cause of diseases classified elsewhere; B95.62 Methicillin resistant Staphylococcus aureus infection as the cause of diseases classified elsewhere; D64.9 Anemia, unspecified; Z23 Encounter for immunization
CPT/HCPCS: 36415; 36600; 71045; 80048; 80053; 80076; 80307; 81001; 82803; 82962; 83735; 84100; 84703; 85025; 85027; 87040; 87070; 87077; 87186; 87205; 87493; 90686; 93005; 93010; 94002; 94003; 94640; 94799; 99291; J0295; J0330; J0515; J1100; J1170; J1644; J2060; J2250; J2310; J2543; J2704; J3010; J3480; J3490; J7030; J7620; J7685

== ENCOUNTER 2017-10-30 03:50 | Emergency (ER) | payer MEDICARE, MEDICAID ==
[2017-10-30] MEDS ORDERED: KETOROLAC TROMETHAMINE INJ/PF 30 MG/1 ML SDV IV ONE (04:05)
[2017-10-30] MEDS ORDERED: PROMETHAZINE HCL INJ 25 MG/1 ML VIAL IM ONE (04:08)
--- NOTE | 2017-10-30 04:11 | ER Document Report ---
ED General - General Chief Complaint: Flank Pain Stated Complaint: FLANK PAIN Time Seen by Provider: 10/30/17 03:58 Notes: Patient is a pleasant 32-year-old female presents with complaint of right flank pain. She does have previous history of kidney stones. She says his pain is been ongoing for 3-4 days. She is also on the left. She had some dysuria. She has had some fevers up to 101 at home. Some vomiting. That she was going to come to ER later today but her pain continued and therefore she came to the ER. In her allergy list she has Toradol; however, patient says that her mom told her before that she is allergic to NSAIDs and that is why Toradol as listed in her allergy list. Patient says that she actually does not think she ever actually had Toradol and recently she has been taken Motrin without having any allergic reaction and therefore she would like to try the Toradol. 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 No other complaints at this time. TRAVEL OUTSIDE OF THE [place] IN LAST 30 DAYS: No - Related Data Allergies/Adverse Reactions: ketorolac [From Toradol] Allergy (Verified 06/25/17 03:17) sumatriptan [From Imitrex] Allergy (Verified 06/25/17 03:17) Past Medical History - Social History Smoking Status: Unknown if Ever Smoked Frequency of alcohol use: None Drug Abuse: None Family History: Other - Unobtainable unobtainable Pulmonary Medical History: Reports: Hx Asthma, Hx Bronchitis, Hx COPD Neurological Medical History: Denies: Hx Seizures Renal/ Medical History: Reports: Hx Kidney Stones. Denies: Hx Peritoneal Dialysis GI Medical History: Denies: Hx Cirrhosis, Hx Crohn's Disease, Hx Ulcerative Colitis Musculoskeltal Medical History: Denies Hx Arthritis, Denies Hx Gout Skin Medical History: Denies Hx Eczema, Denies Hx Psoriasis Psychiatric Medical History: Reports: Hx Bipolar Disorder Traumatic Medical History: Denies: Hx Pneumothorax, Hx Traumatic Brain Injury Past Surgical History: Reports: Hx Appendectomy, Hx Kidney (Renal Surgery) - kidney stents/lithotripsy, Hx Tonsillectomy - Immunizations Hx Diphtheria, Pertussis, Tetanus Vaccination: Yes Review of Systems - Review of Systems Notes: My Normal Review Basic REVIEW OF SYSTEMS: CONSTITUTIONAL : Fever of 101.4 at home. EENT: Denies eye, ear, throat, or mouth pain or symptoms. Denies nasal or sinus congestion. CARDIOVASCULAR: Denies chest pain. RESPIRATORY: Denies cough, cold, or chest congestion. Denies shortness of breath, difficulty breathing, or wheezing. GASTROINTESTINAL: Right flank pain. recurrent vomiting GENITOURINARY: Some dysuria FEMALE GENITOURINARY: Denies vaginal bleeding, abnormal or irregular periods. LMP: MUSCULOSKELETAL: Denies neck or back pain or joint pain or swelling. SKIN: Denies rash or skin lesions. NEUROLOGICAL: Denies altered mental status or loss of consciousness. Denies headache. Denies weakness or paralysis or loss of use of either side. Denies problems with gait or speech. Denies sensory or motor loss. ALL OTHER SYSTEMS REVIEWED AND NEGATIVE. Physical Exam - Vital signs Vitals: Temp Resp BP Pulse Ox 98.9 F 33 H 125/64 100 10/30/17 04:04 10/30/17 04:04 10/30/17 04:04 10/30/17 04:04 - Notes Notes: General Appearance: Well nourished, alert, cooperative, no acute distress, moderate obvious discomfort. Vitals: reviewed, See vital signs table. Head: no swelling or tenderness to the head Eyes: PERRL, EOMI, Conjuctiva clear Mouth: No decreasd moisturege bilaterally. Heart: Tachycardic rate, Regular rythm, No murmur, no rub Abdomen: Normal BS, soft, No rigidity, some pain to palpation of the right flank and right back. Some pain in the left side as well but is mild compared to the right., No guarding, no rebound, no abdominal masses, no organomegaly Extremities: strength 5/5 in all extremities, good pulses in all extremities, no swelling or tenderness in the extremities, no edema. Skin: warm, dry, appropriate color, no rash Neuro: speech clear, oriented x 3, normal affect, responds appropriately to questions. Course - Re-evaluation Re-evalutation: 10/30/17 05:33 On reevaluation patient's pain is completely resolved and she looks and feels much improved. Her nausea is resolved. CT scan shows that she has just mild hydronephrosis with no calculus suggesting that she had a kidney stone and since passed. Urinalysis shows some evidence of mild infection. I still gave her just Rocephin the patient says that she has had fevers at home. Her heart rate was in the 140s when she first arrived. Heart rate is now down around 109. She is to receive a more bag of fluids in the Rocephin. I will then reassess her and make sure that her vital signs were improving and that she continues to feel and look well. 10/30/17 06:13 Calcium level corrected for albumin is out 8.8. 10/30/17 22:28 Patient does have significant hypokalemia and hypo-magnesium. I ordered 40 mEq IV +60 mEq p.o. of potassium. She also received 2 g of mag IV. Patient appears to have had a stone that she recently just passed. She was pain-free for several hours while here in the ER before leaving. She did have some signs or tract infection and she did mention recent fevers and therefore I felt Rocephin was appropriate and also place her on antibiotics was appropriate. They do not think she needs admission as vital signs are much improved and stable and she is feeling better and is pain-free and is no longer shows signs of a kidney stone. I did prescribe her some oral potassium to take over the next few days we will have her follow-up with either us or her doctor on Saturday to have her potassium rechecked. Return to ER if she has recurrent fevers, worsening pain, intractable vomiting, or feels unwell. Dictation of this chart was performed using voice recognition software; therefore, there may be some unintended grammatical errors. - Vital Signs Vital signs: Temp Pulse Resp BP Pulse Ox 98.3 F 100 18 101/80 100 10/30/17 12:16 10/30/17 12:16 10/30/17 12:16 10/30/17 12:16 10/30/17 12:16 - Laboratory Result Diagrams: 10/30/17 04:12 10/30/17 05:20 Laboratory results interpreted by me: 10/30/17 10/30/17 10/30/17 04:12 04:12 05:20 WBC 17.7 H Hct 34.9 L Lymphocytes % 12.7 L Absolute Neutrophils 13.1 H Absolute Monocytes 2.3 H Sodium 134.5 L Potassium 2.3 L* BUN 5 L Calcium 7.7 L Magnesium Total Protein 5.6 L Albumin 2.6 L Urine Blood MODERATE H Urine Urobilinogen 2.0 H Ur Leukocyte Esterase LARGE H 10/30/17 05:20 WBC Hct Lymphocytes % Absolute Neutrophils Absolute Monocytes Sodium Potassium BUN Calcium Magnesium 1.2 L* Total Protein Albumin Urine Blood Urine Urobilinogen Ur Leukocyte Esterase Discharge - Discharge Clinical Impression: UTI (urinary tract infection) Qualifiers: Urinary tract infection type: site unspecified Hematuria presence: with hematuria Qualified Code(s): N39.0 - Urinary tract infection, site not specified Condition: Good Disposition: HOME, SELF-CARE Additional Instructions: Your CT scan suggests that you did just recently pass a kidney stone. I'm glad your pain is improved and your vital signs are improved. You did have an associated urine tract infection for which we gave you a dose of an IV antibiotic. We will also have you continue taking an antibiotic for the next week. Your potassium is very low. We gave you both IV and oral potassium here. I will have you take oral potassium for the next couple of days. Please have your potassium level rechecked on Saturday either here or by your doctor. Please return to ER immediately if you have recurrent pain, fevers, recurrent vomiting , or if you feel that you are becoming ill again in any way. Prescriptions: Ondansetron [Zofran Odt 4 mg Tablet] 1 tab PO Q4HP PRN #10 tab.rapdis PRN Reason: Cephalexin Monohydrate [Keflex 500 mg Capsule] 500 mg PO BID #14 capsule Potassium Chloride 10 meq PO DAILY #5 capsule.er Forms: Return to Work
[2017-10-30] MEDS: NORMAL SALINE 1000 ML 1,000 ML IV PRN ×2 (04:16→05:39)
[2017-10-30 04:46] LABS: ABSOLUTE BASOPHILS # (AUTO) 0.1 10^3/uL (0.0-0.2); ABSOLUTE LYMPHOCYTES (AUTO) 2.2 10^3/uL (0.5-4.7); ABSOLUTE MONOCYTES (AUTO) 2.3 10^3/uL (0.1-1.4); ABSOLUTE NEUT (AUTO) 13.1 10^3/uL (1.7-8.2); BASOPHILS % (AUTO) 0.4 % (0-2); HEMATOCRIT 34.9 % (36.0-47.0); HEMOGLOBIN 12.5 g/dL (12.0-15.5); LYMPHOCYTES % (AUTO) 12.7 % (13-45); MEAN CORPUSCULAR HEMOGLOBIN 31.7 pg (27.0-33.4); MEAN CORPUSCULAR HGB CONC 35.7 g/dL (32.0-36.0); MEAN CORPUSCULAR VOLUME 89 fl (80-97); MONOCYTES % (AUTO) 12.8 % (3-13); PLATELET COUNT 319 10^3/uL (150-450); RED BLOOD COUNT 3.92 10^6/uL (3.72-5.28); RED CELL DISTRIBUTION WIDTH 13.9 % (11.5-14.0); SEGMENTED NEUTROPHILS % (AUTO) 74.1 % (42-78); TOTAL CELLS COUNTED % (AUTO) 100 %; WHITE BLOOD COUNT 17.7 10^3/uL (4.0-10.5)
[2017-10-30 04:50] LABS: APPEARANCE,URINE CLEAR; BILIRUBIN,URINE NEGATIVE (NEGATIVE); COLOR,URINE YELLOW; GLUCOSE, URINE NEGATIVE (NEGATIVE); KETONES,URINE NEGATIVE (NEGATIVE); LEUKOCYTE ESTERASE,URINE LARGE (NEGATIVE); NITRITE,URINE NEGATIVE (NEGATIVE); PROTEIN,URINE NEGATIVE (NEGATIVE); URINE SPECIFIC GRAVITY 1.004
[2017-10-30] MEDS ORDERED: CEFTRIAXONE INJ 1000 MG VIAL IV ONE (05:09)
--- NOTE | 2017-10-30 05:22 | RADIOLOGY REPORT (SQ) ---
EXAM DESCRIPTION: CT ABDOMEN AND PELVIS WITHOUT CONTRAST CLINICAL HISTORY: Right flank/abdominal pain. COMPARISON: None Available. TECHNIQUE: CT of the abdomen and pelvis without IV contrast. Evaluation of the solid organs and vasculature is suboptimal due to lack of IV contrast. DLP: 533.12 mGy-cm FINDINGS: Lung Bases: The visualized lung bases are clear. Bones: No destructive bone lesions identified. Abdomen: Liver: The liver has normal size and decreased density. Gallbladder: No calcified gallstones. Spleen, Pancreas, and Adrenal Glands: The spleen, pancreas, and adrenal glands are unremarkable. Kidneys: Nonobstructing left renal calculus. Mild right hydroureter and hydronephrosis with right perinephric fat stranding. No obstructing calculus identified. Vasculature: The aorta and IVC have normal caliber and position. Stomach: The stomach and duodenum have normal course. Other: No free intraperitoneal air. No free fluid or lymphadenopathy. Pelvis: Bladder: Urinary bladder is unremarkable. Bowel: No dilated loops of large or small bowel. Appendix: Normal appendix. Pelvis: Uterus is not enlarged. IMPRESSION: 1. Mild right hydroureter and hydronephrosis without obstructing calculus identified. These findings could be seen with recently passed right ureteral calculus. 2. Hepatic steatosis. 3. Nonobstructing punctate left renal calculus. This exam was performed according to our departmental dose-optimization program, which includes automated exposure control, adjustment of the mA and/or kV according to patient size and/or use of iterative reconstruction technique.
[2017-10-30 05:44] LABS: ALANINE AMINOTRANSFERASE 20 U/L (9-52); ALBUMIN 2.6 g/dL (3.5-5.0); ALKALINE PHOSPHATASE 93 U/L (38-126); ANION GAP 9 (5-19); ASPARTATE AMINO TRANSFERASE 15 U/L (14-36); BILIRUBIN,DIRECT 0.2 mg/dL (0.0-0.4); BILIRUBIN,TOTAL 0.4 mg/dL (0.2-1.3); BLOOD UREA NITROGEN 5 mg/dL (7-20); CALCIUM 7.7 mg/dL (8.4-10.2); CARBON DIOXIDE 25 mmol/L (22-30); CHLORIDE 101 mmol/L (98-107); GLUCOSE 83 mg/dL (75-110); SODIUM 134.5 mmol/L (137-145); TOTAL PROTEIN 5.6 g/dL (6.3-8.2)
[2017-10-30 05:49] LABS: POTASSIUM 2.3 mmol/L (3.6-5.0)
[2017-10-30] MEDS ORDERED: POTASSIUM CHLORIDE 10 MEQ TABLET.SA PO ONE ×2 (06:10→06:56)
[2017-10-30] MEDS: POTASSI CL 20 MEQ/50 ML RIDER 20 MEQ/50 ML RTUPB IV SCH ×2 (06:57→09:57)
[2017-10-30] MEDS ORDERED: MAGNESIUM SULFATE/D5W 1 GM/100 ML RTUPB IV SCH (07:15)
[2017-10-30 12:18] VITALS: BP 101/80
== END 2017-10-30 12:15 | disposition home or self-care (01) ==
LOC: ER 03:50
DX: N39.0 Urinary tract infection, site not specified (principal); R31.9 Hematuria, unspecified; N13.30 Unspecified hydronephrosis; R50.9 Fever, unspecified; R11.2 Nausea with vomiting, unspecified; R10.9 Unspecified abdominal pain; E87.6 Hypokalemia; E83.42 Hypomagnesemia; R00.0 Tachycardia, unspecified; M54.9 Dorsalgia, unspecified; J44.9 Chronic obstructive pulmonary disease, unspecified; Z88.8 Allergy status to other drugs, medicaments and biological substances; Z88.6 Allergy status to analgesic agent; Z53.20 Procedure and treatment not carried out because of patient's decision for unspecified reasons
CPT/HCPCS: 99284; 96361; 96365; 36415; 87086; 83735; 85025; 81025; 87088; 80053; 81001; 87186; 76380; J1885; J3475; J2550; J0696; J3480; J7030; A9270